=== PATIENT | male | born 1970 | race Two or more races ===

== ENCOUNTER 2024-11-23 10:22 | Inpatient (IN) | payer MEDICAID, OTHER ==
[~2024-11-23] VITALS: Ht 177.8 cm; Wt 106.8 kg
[2024-11-23 10:30] VITALS: PULSE 95; RESP 24; O2SAT 100
--- NOTE | 2024-11-23 11:00 | ED.PDOC ---
History of Present Illness HPI Comments This is a 54-year-old male who comes in with chief complaint of shortness a breath and increased urine output. According to the family, the patient had nine episodes of urination today. The patient denies any hematuria. He has had some chills as well as some confusion and agitation. He has a history of liver cirrhosis but has never undergone a paracentesis. He states that he is having the difficulty breathing along with the chills. He was brought to the emergency department's by the family member. Chief Complaint: Shortness of Breath Time Seen by MD: 10:25 Primary Care Provider: UNKNOWN Reviewed Notes: Nurses Notes, Medications, Allergies (NKDA) Allergies: Coded Allergies: NO KNOWN ALLERGIES (Unverified , 11/23/24) Information Source: Patient Mode of Arrival: Ambulatory Severity: Moderate Timing: Hours Duration: Since onset Prehospital treatment: None Associated signs and symptoms Increased urine output as well as some shortness for breath and chills Past Medical History PAST MEDICAL HISTORY: DM, Liver Surgical History: Denies all surgeries Family History Family History: Family hx of DM, Family hx of HTN Social History Smoker: Non-Smoker Alcohol: Sober Drugs: Denies Drug Use Lives In: Home Constitutional: reports: chills; denies: diaphoresis, fatigue, fever, malaise, sweats, weakness, others EENTM: denies: blurred vision, double vision, ear bleeding, ear discharge, ear drainage, ear pain, ear ringing, eye pain, eye redness, hearing loss, mouth pain, mouth swelling, nasal discharge, nose bleeding, nose congestion, nose pain, photophobia, tearing, throat pain, throat swelling, voice changes, others Respiratory: reports: shortness of breath; denies: cough, hemoptysis, orthopnea, SOB at rest, SOB with excertion, stridor, wheezing, others Cardiovascular: denies: chest pain, dizzy spells, diaphoresis, Dyspnea on exertion, edema, irregular heart beat, left arm pain, lightheadedness, palpitations, PND, syncope, others Gastrointestinal: denies: abdomen distended, abdominal pain, blood streaked bowels, constipated, diarrhea, dysphagia, difficulty swallowing, hematemesis, melena, nausea, poor appetite, poor fluid intake, rectal bleeding, rectal pain, vomiting, others Genitourinary: denies: burning, dysuria, flank pain, frequency, hematuria, incontinence, penile discharge, penile sore, pain, testicle pain, testicle swelling, urgency, others Neurological: reports: others (Agitated and confused); denies: dizziness, fainting, headache, left sided numbness, left sided weakness, numbness, paresthesia, pre-existing deficit, right sided numbness, right sided weakness, seizure, speech problems, tingling, tremors, weakness Musculoskeletal: denies: back pain, gout, joint pain, joint swelling, muscle pain, muscle stiffness, neck pain, others Integumetry: denies: bruises, change in color, change in hair/nails, dryness, laceration, lesions, lumps, rash, wounds, others Allergic/Immunocompromised: denies: Difficulty Healing, Frequent Infections, Hives, Itching, others Hematologic/Lymphatic: denies: anemia, blood clots, easy bleeding, easy bruising, swollen glands, others Endocrine: reports: excessive urination; denies: excessive hunger, excessive sweating, excessive thirst, flushing, intolerance to cold, intolerance to heat, unexplained weight gain, unexplained weight loss, others Psychiatric: denies: anxiety, bipolar disorder, depression, hopeless, panic disorder, schizophrenia, sleepless, suicidal, others Physical Exam General Appearance: Moderate Distress, Obese HEENT: Pale Conjuntivae (L), Pale Conjuntivae (R), Pharynx Normal, TMs Normal Neck: Full Range of Motion, Non-Tender, Normal, Normal Inspection Respiratory: Chest Non-Tender, Decreased Breath Sounds, No Accessory Muscle Use , Respiratory Distress Cardiovascular: No Edema, No JVD, No Murmur, No Gallop, Tachycardia Breast Exam: Deferred Gastrointestinal: Distended, Hepatomegaly, No Pulsatile Mass, Normal Bowel So unds, Soft Genitalia: Deferred Pelvic: Deferred Rectal: Deferred Extremities: No calf tenderness, Normal capillary refill, Pedal edema Musculoskeletal : Apperance: Normal Neurologic: supervisor rides II-XII nml as Tested, Motor Weakness, Normal Mood, No Sensory Deficits, Other (Some confusion) Cerebellar Function: Unable to Test Reflexes: Normal Skin: Dry, Pallor, Warm Lymphatic: No Adenopathy Was a procedure done? Was a procedure done?: No EKG EKG : Pulse Rate (adult): 107 [place]: Normal Cardiac Rhythm: ST Block: None Differential Dx Considerations may include: Pneumonia, cirrhosis of the liver, bronchitis, CHF X-Ray, Labs, Meds, VS Vital Signs Date Time Temp Pulse Resp B/P (MAP) Pulse Ox O2 Delivery O2 Flow Rate FiO2 11/23/24 13:25 93 11/23/24 11:00 107 11/23/24 10:42 99.5 103 27 145/90 (108) 81 11/23/24 10:31 168 11/23/24 10:30 95 24 100 Non-Rebreather 15 N/A Lab Test 11/23/24 11:03 11/23/24 10:34 Range/Units White Blood Count 7.0 4.4-10.8 10^3/uL Red Blood Count 4.40 L 4.5-5.90 10^6/uL Hemoglobin 14.6 13.5-17.5 g/dL Hematocrit 43.0 41.0-53.0 % Mean Corpuscular Volume 97.7 80.0-100.0 fL Mean Corpuscular Hemoglobin 33.2 H 28.0-32.0 pg Mean Corpuscular Hemoglobin Concent 33.9 32.0-36.0 g/dL Red Cell Distribution Width 17.3 H 11.8-14.3 % Platelet Count 98 L 140-450 10^3/uL Mean Platelet Volume 9.1 6.9-10.8 fL Neutrophils (%) (Auto) 37.0-80.0 % Lymphocytes (%) (Auto) 10.0-50.0 % Monocytes (%) (Auto) 0.0-12.0 % Basophils (%) (Auto) 0.0-2.0 % Neutrophils # (Auto) 1.6-8.6 10 ^3/uL Lymphocytes # (Auto) 0.4-5.4 10 ^3/uL Monocytes # (Auto) 0-1.3 10 ^3/uL Differential Total Cells Counted 100.0 100 Neutrophils % (Manual) 75 37.0-80.0 Band Neutrophils % (Manual) 7 Lymphocytes % (Manual) 14 10.0-50.0 Monocytes % (Manual) 3 0-12 Eosinophils % (Manual) 0 0-7 Basophils % (Manual) 0 0.0-2.0 Metamyelocytes % (manual) 0 Myelocytes % (Manual) 0 Promyelocytes % (Manual) 0 Blast Cells % (Manual) 0 Reactive Lymphocytes 1 Platelet Estimate Decreased Prothrombin Time 14.5 H 9.3-11.8 sec Prothrombin Time INR 1.37 H 0.9-1.15 Activated Partial Thromboplast Time 29.6 24.5-34.5 SEC Sodium Level 130 L 136-145 mmol/L Potassium Level 4.5 3.5-5.1 mmol/L Chloride Level 98 98-107 mmol/L Carbon Dioxide Level 24 20-31 mmol/L Anion Gap 8 5-15 Blood Urea Nitrogen 11 9-23 mg/dL Creatinine 0.80 0.700-1.30 mg/dL Glomerular Filtration Rate Calc 106 >90 mL/min BUN/Creatinine Ratio 13.8 10.0-20.0 Serum Glucose 199 H 74-106 mg/dL Calcium Level 8.6 L 8.7-10.4 mg/dL Total Bilirubin 3.1 H 0.2-1.0 mg/dL Aspartate Amino Transferase (AST) 140 H 13-40 U/L Alanine Aminotransferase (ALT) 73 H 7-40 U/L Alkaline Phosphatase 285 H 46-116 U/L Ammonia 66 H 11-32 umol/L B-Type Natriuretic Peptide 161.26 0-100 pg/mL Total Protein 7.1 5.7-8.2 g/dL Albumin 2.5 L 3.2-4.8 g/dL Urine Color Yellow Yellow Urine Clarity Clear Clear Urine pH 5.5 5.0-9.0 Urine Specific [place] 1.040 H 1.001-1.035 Urine Protein Negative Negative Urine Ketones Negative Negative Urine Blood 3+ H Negative /uL Urine Nitrite Negative Negative Urine Bilirubin Negative Negative Urine Urobilinogen Normal Negative mg/dL Urine Leukocyte Esterase Trace Negative /uL Urine RBC 245 0 - 3 /hpf Urine WBC 41 0 - 3 /hpf Urine Squamous Epithelial Cells Few <5 /hpf Urine Bacteria None seen None Seen /hpf Urine Glucose 4+ H Normal mg/dL The chest x-ray shows low volumes with lung congestion. The patient was only around 80% on room air oxygen The patient was being placed on oxygen for the hypoxia An IV Hep-Lock was established. The urine test is positive for UTI The patient's total bilirubin is 3.1 indicating hyperbilirubinemia The liver enzymes are elevated and the ammonia level is elevated at 66. The patient was being admitted with a diagnosis of hepatic encephalopathy as well as intractable abdominal pain We recommend that a GI consult takes place to evaluate the cirrhosis of the li caroline Images Reviewed?: Images reviewed and evaluated by me Time of 1ST Reevaluation: 10:59 Reevaluation 1ST: Unchanged Patient Education/Counseling: Diagnosis, Treatment, Prognosis Family Education/Counseling: Diagnosis, Treatment, Prognosis Departure 1 Departure Time of Disposition: 11:35 Impression: Primary Impression: Intractable abdominal pain Additional Impressions: Hyperbilirubinemia Hepatic encephalopathy Shortness of breath Liver cirrhosis Disposition: ADMITTED INPATIENT Admit to: Tele Condition: Fair Critical Care Note Critical Care Time?: Yes (45 min-critical care time only) Stability Stability form required: Yes Unstable for transfer: Telemetry monitoring (Telemetry monitoring required), ED Physician Assesment (Clinical assesment) Heart Score Heart Score: Heart Score Response (Comments) Value History Moderate Suspicious 1 EKG Normal 0 Age 45-64 1 Risk Factors 1 or 2 risk factors 1 Troponin N/A 0 Total 3 I personally scribed for JUDITH RAJAN MD ([email or web address]) on 11/23/24 at 12:05. Electronically submitted by Jory Paz ([facility]). JUDITH RAJAN MD Nov 23, 2024 11:00
--- NOTE | 2024-11-23 11:10 | DVH ---
CHEST RADIOGRAPH Indication: sob Technique: Single frontal view of the chest was obtained COMPARISON: None FINDINGS: Lines and Tubes: None Lungs: Congestion. Low lung volumes. Pleura: No effusion. No pneumothorax. Cardiomediastinal contours: Unremarkable Bones: Unremarkable IMPRESSION: Congestion. Low lung volumes.
[2024-11-23 12:11] LABS: Hemoglobin 14.6 g/dL (13.5-17.5); Mean Corpuscular Hemoglobin 33.2 pg (28.0-32.0); Mean Corpuscular Hgb Conc. 33.9 g/dL (32.0-36.0); Mean Corpuscular Volume 97.7 fL (80.0-100.0); Platelet Count (auto) 98 10^3/uL (140-450); Red Cell Distribution Width 17.3 % (11.8-14.3)
[2024-11-23 12:13] LABS: Basophils % (manual) 0 (0.0-2.0); Blast Cells 0; Eosinophils % (manual) 0 (0-7); Metamyelocytes % 0; Myelocytes % 0; Promyelocytes % 0
[2024-11-23 12:23] LABS: Urine Bacteria None Seen /hpf (None Seen)
[2024-11-23 12:32] LABS: Anion Gap 8 (5-15); BUN/Creatinine Ratio 13.8 (10.0-20.0); Blood Urea Nitrogen 11 mg/dL (9-23); Carbon Dioxide 24 mmol/L (20-31); Chloride 98 mmol/L (98-107); Potassium 4.5 mmol/L (3.5-5.1); Total Protein 7.1 g/dL (5.7-8.2)
[2024-11-23 12:33] LABS: INR 1.37 (0.9-1.15); Partial Thromboplastin Time 29.6 SEC (24.5-34.5); Prothrombin Time 14.5 sec (9.3-11.8)
[2024-11-23 12:43] LABS: Alanine Aminotransferase 73 U/L (7-40); Albumin 2.5 g/dL (3.2-4.8); Alkaline Phosphatase 285 U/L (46-116); Aspartate Aminotransferase 140 U/L (13-40); Bilirubin, Total 3.1 mg/dL (0.2-1.0); Calcium 8.6 mg/dL (8.7-10.4); Glucose 199 mg/dL (74-106); Sodium 130 mmol/L (136-145)
[2024-11-23 13:09] LABS: Urine Blood 3+ /uL (Negative); Urine Clarity Clear (Clear); Urine Color Yellow (Yellow); Urine Protein, UAD Negative (Negative); Urine Squamous Epithelial Cell FEW /hpf (<5); Urine Urobilinogen Normal (Negative); Urine WBC 41 /hpf (0 - 3); Urine pH 5.5 (5.0-9.0)
[2024-11-23 13:22] LABS: Band Neutrophils % (manual) 7
[2024-11-23 13:23] LABS: Lymphocytes % (manual) 14 (10.0-50.0); Monocytes % (manual) 3 (0-12); Platelet Estimate Decreased; Reactive Lymphocytes 1
[2024-11-23] MEDS: cefTRIAXone 1GM/50ML D5W 50 ML IV ONE (13:41)
[2024-11-23] MEDS: LACTULOSE 20Gm/30ML SOLN PO ONE (15:06)
[2024-11-23] MEDS ORDERED: NITROGLYCERIN 0.4 MG SL TAB SL PRN ×2 (15:45→16:00)
[2024-11-23] MEDS ORDERED: ALBUTEROL SULF 2.5 MG/0.5ML(0.5%) NEB SOLN NEB PRN ×2 (15:45→16:00)
[2024-11-23] MEDS: FUROSEMIDE 20 MG/2 ML VIAL IV ONE (15:45)
[2024-11-23] MEDS ORDERED: FUROSEMIDE 20 MG/2 ML VIAL IV ONE (15:45)
[2024-11-23] MEDS ORDERED: MORPHINE SULFATE INJ 2 MG/ml SYRG IV PRN ×2 (15:45→16:00)
--- NOTE | 2024-11-23 16:01 | DVHHP2 ---
History of Present Illness Reason for Visit: Acute hypoxic respiratory failure History of Present Illness This is a 54-year-old male with history of liver disease and type 2 DM presents to ED with chief complaint of shortness of breaths associated with polydipsia, chills, confusion and agitation. Patient has history of liver cirrhosis related to alcohol abuse, quit five years ago. Upon evaluation of patient in ER bed eight, currently on 15 L non-rebreather mask with SpO2 99% with large abdominal distention. He denies ever having paracentesis. He states recently going to hospital in [place] on November 06, 2024 for shortness of breath and abdominal distention in which ultrasound was performed and not needing paracentesis at that time. Daughter at the bedside states that his abdomen has progressively gotten larger causing more shortness of breath. Due to these symptoms the patient is concerned and would like to be further evaluated and treated. The pa tono will be admitted under hospitalist care to the telemetry unit for monitoring. The patient denies headache, dizziness, palpitation, chest pain, nausea, vomiting, diarrhea, constipation and other associated symptoms. The plan has been discussed with the patient daughter at the bedside and primary RN in which all questions concerns have been addressed. Hepatobiliary: Cirrhosis (Alcohol-induced) Endocrine: Diabetes Past Surgical History: None Family History: DM, Hypertension Smoke: No ALCOHOL: heavy (History of alcohol abuse currently sober x5 years) Drugs: None Lives: with Family Domestic Violence: Neg Review of Systems Respiratory: Shortness of breath Gastrointestinal: Abdominal Pain, Other (Abdominal distention) Allergies: Coded Allergies: NO KNOWN ALLERGIES (Unverified , 11/23/24) Medications Current Medications Medications Dose Ordered Sig/Lupe Route Start Time Stop Time Status Last Admin Dose Admin Lactulose 30 ml DAILY PO 11/24/24 10:00 Albuterol 2.5 mg Q2HPRN PRN NEB 11/23/24 15:45 UNV Furosemide 20 mg DAILY IV 11/24/24 10:00 UNV Enoxaparin Sodium 40 mg DAILY SC 11/24/24 10:00 UNV Nitroglycerin 0.4 mg Q5MINP PRN SL 11/23/24 15:45 UNV Morphine Sulfate 2 mg Q30M PRN IV 11/23/24 15:45 UNV Exam Vital Signs Vital Signs Date Time Temp Pulse Resp B/P (MAP) Pulse Ox O2 Delivery O2 Flow Rate FiO2 11/23/24 14:38 100.2 91 26 94/55 (68) 98 100.2 11/23/24 10:30 Non-Rebreather 15 N/A General Appearance: Alert, Oriented X3, Cooperative, mild distress HEENT: Atraumatic, PERRLA, Mucous membr. moist/pink Respiratory: Other (Diminished bilateral lower lung [place]) Cardiovascular: Regular rate, Normal S1, Normal S2, No murmurs Abdominal: Normal bowel sounds Extremities: No clubbing, No cyanosis, No edema, Normal pulses Skin: No rashes, No breakdown Neuro: Normal speech, Strength at 5/5 X4 ext, Normal tone, Sensation intact Psych/Mental Status: Mental status NL Labs/Xrays Labs Test 11/23/24 11:03 11/23/24 10:34 Range/Units White Blood Count 7.0 4.4-10.8 10^3/uL Red Blood Count 4.40 L 4.5-5.90 10^6/uL Hemoglobin 14.6 13.5-17.5 g/dL Hematocrit 43.0 41.0-53.0 % Mean Corpuscular Volume 97.7 80.0-100.0 fL Mean Corpuscular Hemoglobin 33.2 H 28.0-32.0 pg Mean Corpuscular Hemoglobin Concent 33.9 32.0-36.0 g/dL Red Cell Distribution Width 17.3 H 11.8-14.3 % Platelet Count 98 L 140-450 10^3/uL Mean Platelet Volume 9.1 6.9-10.8 fL Neutrophils (%) (Auto) 37.0-80.0 % Lymphocytes (%) (Auto) 10.0-50.0 % Monocytes (%) (Auto) 0.0-12.0 % Basophils (%) (Auto) 0.0-2.0 % Neutrophils # (Auto) 1.6-8.6 10 ^3/uL Lymphocytes # (Auto) 0.4-5.4 10 ^3/uL Monocytes # (Auto) 0-1.3 10 ^3/uL Differential Total Cells Counted 100.0 100 Neutrophils % (Manual) 75 37.0-80.0 Band Neutrophils % (Manual) 7 Lymphocytes % (Manual) 14 10.0-50.0 Monocytes % (Manual) 3 0-12 Eosinophils % (Manual) 0 0-7 Basophils % (Manual) 0 0.0-2.0 Metamyelocytes % (manual) 0 Myelocytes % (Manual) 0 Promyelocytes % (Manual) 0 Blast Cells % (Manual) 0 Reactive Lymphocytes 1 Platelet Estimate Decreased Prothrombin Time 14.5 H 9.3-11.8 sec Prothrombin Time INR 1.37 H 0.9-1.15 Activated Partial Thromboplast Time 29.6 24.5-34.5 SEC Sodium Level 130 L 136-145 mmol/L Potassium Level 4.5 3.5-5.1 mmol/L Chloride Level 98 98-107 mmol/L Carbon Dioxide Level 24 20-31 mmol/L Anion Gap 8 5-15 Blood Urea Nitrogen 11 9-23 mg/dL Creatinine 0.80 0.700-1.30 mg/dL Glomerular Filtration Rate Calc 106 >90 mL/min BUN/Creatinine Ratio 13.8 10.0-20.0 Serum Glucose 199 H 74-106 mg/dL Calcium Level 8.6 L 8.7-10.4 mg/dL Total Bilirubin 3.1 H 0.2-1.0 mg/dL Aspartate Amino Transferase (AST) 140 H 13-40 U/L Alanine Aminotransferase (ALT) 73 H 7-40 U/L Alkaline Phosphatase 285 H 46-116 U/L Ammonia 66 H 11-32 umol/L B-Type Natriuretic Peptide 161.26 0-100 pg/mL Total Protein 7.1 5.7-8.2 g/dL Albumin 2.5 L 3.2-4.8 g/dL Urine Color Yellow Yellow Urine Clarity Clear Clear Urine pH 5.5 5.0-9.0 Urine Specific [place] 1.040 H 1.001-1.035 Urine Protein Negative Negative Urine Ketones Negative Negative Urine Blood 3+ H Negative /uL Urine Nitrite Negative Negative Urine Bilirubin Negative Negative Urine Urobilinogen Normal Negative mg/dL Urine Leukocyte Esterase Trace Negative /uL Urine RBC 245 0 - 3 /hpf Urine WBC 41 0 - 3 /hpf Urine Squamous Epithelial Cells Few <5 /hpf Urine Bacteria None seen None Seen /hpf Urine Glucose 4+ H Normal mg/dL ORDERING PHYSICIAN: JUDITH RAJAN MD PROCEDURE(s): CXRP - CHEST PORTABLE REASON: sob ORDER NUMBER(s): [id number], ACCESSION NUMBER(s): [id number] CHEST RADIOGRAPH Indication: sob Technique: Single frontal view of the chest was obtained COMPARISON: None FINDINGS: Lines and Tubes: None Lungs: Congestion. Low lung volumes. Pleura: No effusion. No pneumothorax. Cardiomediastinal contours: Unremarkable Bones: Unremarkable IMPRESSION: Congestion. Low lung volumes. ATED BY: BRONSON DAVIS MD DICTATED DATE/TIME: 11/23/241104 SIGNED BY: BRONSON DAVIS MD SIGNED DATE/TIME: 11/23/241104 CC: Assessment/Plan Assessment/Plan Acute hypoxic respiratory failure--patient presents to ER with shortness of breath associated with polydipsia, chills, confusion agitation Recently went to hospital in [place] on 11/06/2024 for same symptoms History of alcohol abuse quit five years ago; never received paracentesis Currently on 15 L non-rebreather mask with SpO2 99% Admit to telemetry unit for continuous monitoring Reviewed CBC which is normal Reviewed urinalysis which is normal INR less than 2.0 Reviewed BMP lab values Reviewed BNP which is 161 Reviewed chest x-ray shows congestion Albuterol q.2h p.r.n. shortness of breath IV Lasix now and daily ABG now pending result Consider place patient on BiPAP if needed Consider to consult pipe cutter if respiratory status progressively declined Hyponatremia/sodium 130 Continue to monitor labs Hypoalbuminemia Albumin level 2.5 Continue to monitor labs Ascites Ordered abdominal ultrasound to check fluid level Consider to consult interventional radiologist for possible paracentesis Cirrhosis due to alcohol abuse Elevated liver enzyme Liver ultrasound pending Consider to consult GI specialist for evaluation and recommendation Hyperammonemia Ammonia level 66 Lactulose now and daily Check ammonia level in a.m. Type 2 DM ? Uncontrolled HGB A1c pending Regular insulin mild SS a.c. and HS Accu-Cheks per protocol Reconcile home medication DVT prophylaxis PUD prophylaxis Labs in a.m. Discussed plan of care with the patient, daughter who is at the bedside and primary RN in which all questions concerns have been addressed Plan discussed with: Patient My Orders Orders - DOUG STROUD EDUCATION RN Procedure Category Date Status Time Lactulose Oral PHA 11/24/24 In Process 10:00 Abdomen Complete US 11/23/24 Logged Sonogram 15:42 Ammonia LAB 11/24/24 Verified 04:00 Albuterol Medneb PHA 11/23/24 Logged (Ventolin Medneb) 15:45 Furosemide Injection PHA 11/24/24 Logged (Lasix Injection) 10:00 Furosemide Injection PHA 11/23/24 Logged (Lasix Injection) 15:45 Admit ADMIT 11/23/24 Transmitted 15:42 2 Gm Sodium Diet DIET 11/23/24 Transmitted Dinner Enoxaparin Sodium PHA 11/24/24 Logged (Lovenox) 10:00 Complete Blood Count LAB 11/24/24 Verified 04:00 Comprehensive LAB 11/24/24 Verified Metabolic Panel 04:00 Condition: Fair [facility] 11/23/24 In Process 15:42 Bedrest With Bathroom [facility] 11/23/24 In Process Privileg 15:42 Nitroglycerin [facility] 11/23/24 Logged Sublingual (Ntrostat 15:45 Morphine Sulfate PHA 11/23/24 Logged Injection 15:45 Stat Ekg For Chest [facility] 11/23/24 In Process Pain 15:42 Notify Md Of Changes [facility] 11/23/24 In Process From Base 15:42 Production Superintendent Hydro For [facility] 11/23/24 In Process 24 Hours 15:42 Emergency Dysrhythmia [facility] 11/23/24 In Process Protocol 15:42 Rhythm Strips Once [facility] 11/23/24 In Process Every Shift 15:42 Oxygen By Nasal RT 11/23/24 Transmitted Cannula 15:42 D-Dimer LAB 11/23/24 Logged 15:42 Communication Order ORDERS 11/23/24 Transmitted 15:42 LIVER US 11/23/24 Logged 15:42 Bilirubin, Direct LAB 11/23/24 Logged 15:46 Date of Service: Nov 23, 2024 Billing Provider: DOUG STROUD Common Visit Codes: [id number] INP/OBS CARE (HIGH) DOUG STROUDP Nov 23, 2024 16:01
[2024-11-23 16:38] VITALS: BP 94/55; PULSE 91; RESP 26; TEMP 100.2; O2SAT 98
--- NOTE | 2024-11-23 16:43 | DVH ---
Procedure: US ABDOMEN COMPLETE SONOGRAM 11/23/2024 04:27 PM Indication: Ascites Comparison: None Technique: Sonogram of the abdominal quadrants was obtained utilizing grayscale technique. FINDINGS: Fluid is seen in all 4 abdominal quadrants with the largest pocket in the right lower quadr ant. IMPRESSION: Moderate ascites with the largest pocket in the right lower quadrant.
[2024-11-23 16:47] LABS: Base Excess -1.2 mmol/L (-2.0-3.0)
[2024-11-23 19:30] VITALS: PULSE 96; RESP 22; O2SAT 100
[2024-11-23 21:24] VITALS: O2SAT 96
[2024-11-23 21:45] VITALS: BP 100/66; PULSE 86; RESP 20; TEMP 97.9; O2SAT 100
[2024-11-23 22:27] VITALS: BP 100/66; PULSE 86; RESP 19; TEMP 97.9; O2SAT 100
[2024-11-24] VITALS (11 sets, daily range): BP systolic 91–105; BP diastolic 52–58; PULSE 70–95; RESP 16–22; TEMP 97.3–98.3; O2SAT 96–100
[2024-11-24 02:38] LABS: COVID19 ANTIGEN SOFIA FIA NEGATIVE (NEGATIVE)
[2024-11-24 05:45] LABS: Basophils # (auto) 0 10 ^3/uL (0-0.2); Eosinophils # (auto) 0 10 ^3/uL (0-0.8); Hematocrit 36.9 % (41.0-53.0); Hemoglobin 12.5 g/dL (13.5-17.5); Lymphocytes # (auto) 1.4 10 ^3/uL (0.4-5.4); Lymphocytes % (auto) 11.4 % (10.0-50.0); Mean Corpuscular Hemoglobin 33.4 pg (28.0-32.0); Mean Corpuscular Hgb Conc. 33.8 g/dL (32.0-36.0); Mean Corpuscular Volume 98.7 fL (80.0-100.0); Monocytes # (auto) 0.8 10 ^3/uL (0-1.3); Monocytes % (auto) 6.5 % (0.0-12.0); Neutrophils % (auto) 82.1 % (37.0-80.0); Nucleated Red Blood Cells % 0.1 %; Platelet Count (auto) 76 10^3/uL (140-450); Red Blood Cells 3.74 10^6/uL (4.5-5.90); Red Cell Distribution Width 17.6 % (11.8-14.3); White Blood Cell 12.2 10^3/uL (4.4-10.8)
[2024-11-24 05:57] LABS: Anion Gap 7 (5-15); BUN/Creatinine Ratio 22.4 (10.0-20.0); Blood Urea Nitrogen 13 mg/dL (9-23); Carbon Dioxide 23 mmol/L (20-31); Chloride 102 mmol/L (98-107); Potassium 4.9 mmol/L (3.5-5.1)
[2024-11-24 05:58] LABS: Total Protein 6.1 g/dL (5.7-8.2)
[2024-11-24 05:59] LABS: Alanine Aminotransferase 57 U/L (7-40); Albumin 2.2 g/dL (3.2-4.8); Alkaline Phosphatase 220 U/L (46-116); Aspartate Aminotransferase 105 U/L (13-40); Bilirubin, Total 2.8 mg/dL (0.2-1.0); Calcium 8.1 mg/dL (8.7-10.4); Glucose 134 mg/dL (74-106); Sodium 132 mmol/L (136-145)
[2024-11-24] MEDS ORDERED: ENOXAPARIN SOD 40 MG/0.4 ML SYRINGE SC SCH (10:00)
[2024-11-24] MEDS ORDERED: FUROSEMIDE 20 MG/2 ML VIAL IV SCH (10:00)
[2024-11-24] MEDS ORDERED: LACTULOSE 20Gm/30ML SOLN PO SCH ×2 (10:00→22:00)
[2024-11-24] MEDS: FUROSEMIDE 20 MG/2 ML VIAL IV SCH (10:29)
[2024-11-24] MEDS: ENOXAPARIN SOD 40 MG/0.4 ML SYRINGE SC SCH (10:31)
--- NOTE | 2024-11-24 10:50 | ECG ---
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
--- NOTE | 2024-11-24 15:19 | DVHPNRES ---
Progress Note Date Seen: Nov 24, 2024 Resident Creating Document: SHEMARRADHALUMA RESIDENT Medical Necessity Reason Pt with a Central, PICC or Fol: No Subjective Review of Systems Patient is a 54-year-old male with a past medical history of type 2 diabetes mellitus, liver cirrhosis came to the ED with a chief complaint of shortness of breath for 1 day prior to admission. Patient reported that he had fever about 4-5 days ago and has been feeling short of breath yesterday which worsened and prompted him to visit the hospital. Patient reports that since the last 2-3 weeks he was noted that his stomach has swollen up gradually and slowly and he often times feels bloated. Patient was diagnosed with liver cirrhosis 5 years ago, alcohol induced. Patient denied nausea, vomiting, abdominal pain in the last week. No history of hematemesis, melena, hematochezia. He recently moved to the [facility] from [place]. Past medical history: Type 2 diabetes mellitus, Liver cirrhosis (alcohol- induced) Past surgical history: None reported Social history: Patient lives with his daughter, recently moved from [place], denies current smoking, alcohol, drug use Home medications: Furosemide 40 mg q.d., propranolol 40 mg q.d., spironolactone 50 mg b.i.d., folic acid, ursodeoxycholic acid Review of systems At the time of examination patient was saturating 98% on 4 L oxygen via nasal cannula. Patient denied chest pain, palpitations, nausea, vomiting, diarrhea, headache. Objective vital signs Vital Sign Date Time Temp Pulse Resp B/P (MAP) Pulse Ox O2 Delivery O2 Flow Rate FiO2 11/24/24 13:00 97.4 70 16 91/57 (68) 98 97.4 11/23/24 22:27 Non-Rebreather 10 N/A Total Intake and Output 11/23/24 11/23/24 11/24/24 15:00 23:00 07:00 Intake Total 50 ml 400 ml Output Total 50 ml 100 ml 350 ml Balance 0 ml -100 ml 50 ml medications Current Medications Medications Dose Ordered Sig/Lupe Route Start Time Stop Time Status Last Admin Dose Admin Lactulose 30 ml DAILY PO 11/24/24 10:00 Furosemide 20 mg DAILY IV 11/24/24 10:00 11/24/24 10:29 20 MG Enoxaparin Sodium 40 mg DAILY SC 11/24/24 10:00 Morphine Sulfate 2 mg Q30M PRN IV 11/23/24 16:00 Albuterol 2.5 mg Q2HPRN PRN NEB 11/23/24 16:00 Nitroglycerin 0.4 mg Q5MINP PRN SL 11/23/24 16:00 Examination Physical Examination Constitutional: Patient was alert and oriented to time, place and person and did not appear to be in any acute respiratory distress. Gen - no pallor, scleral icterus present, no cyanosis, no clubbing, no LAD, 2+ edema up to the mid shins present bilateral lower extremities , no asterixis seen. Skin - Patients skin is warm and dry. HEENT - normocephalic, atraumatic, moist mucous membranes. Neck - full ROM, no LAD, no JVD. Pulmonary - B/L equal air entry with bibasilar scattered inspiratory coarse crackles heard , no wheezing, no stridor. cardiovascular - normal S1,S2 heard. no murmurs heard. peripheral pulses normal radial 2+, pedal 2+. GI - soft distended abdomen with no tenderness to palpation. no hepatospleenomegaly. Bowel sounds normoactive Neurological - Bilateral upper extremity strength 5/5, bilateral lower extremity strength 5/5, no facial droop, normal speech, no tremor, no sensory deficiets. laboratory and microbiology Laboratory Tests 11/24/24 04:27 Test 11/24/24 04:27 Range/Units Serum Glucose 134 H 74-106 mg/dL Problem List/Assessment/Plan Problem List/Assessment/Plan Assessment Acute hypoxic respiratory failure likely due to pulmonary edema Pulmonary edema likely due to decompensated liver cirrhosis Decompensated liver cirrhosis alcohol-induced MELD Na-18 ? SBP with SIRS positive ? Heart failure systolic versus diastolic R/o PE UTI likely acute cystitis Chest x-ray shows interstitial pulmonary edema Abdominal ultrasound showed moderate ascites with the largest pocket right Bilateral lower extremity venous Doppler showed no sonographic evidence for DVT in the lower extremities Plan - on 2 L oxygen via nasal cannula - albuterol 2.5 mg and ipratropium 0.5 mg Q 8 p.r.n. - furosemide 40 mg IV daily and spironolactone 50 mg p.o. b.i.d. - propranolol 20 mg q.d. - lactulose 15 mL p.o. b.i.d. - ceftriaxone 2 g IV daily - intervention Radiology consulted for ascites, not enough fluid seen via ultrasound by Dr. Hernandez, no paracentesis was done. - D-dimer elevated in the setting of decompensated liver cirrhosis, wells score 4.5, nuclear medicine V/Q scan may be considered. - for suspected heart failure, echo is pending Goals of care discussed with the patient and the daughter for over 25 minutes. Full code Plan discussed with Dr. Cuellar. Plan discussed with: Patient, Daughter Date of Service: Nov 24, 2024 Billing Provider: KORY CUELLAR MD Common Visit Codes: [id number] INP/OBS CARE(HIGH) KAMILLE STATON RESIDENT Nov 24, 2024 15:19 KORY CUELLAR MD Nov 27, 2024 15:17
[2024-11-24] MEDS ORDERED: ALBUTEROL SULF 2.5 MG/0.5ML(0.5%) NEB SOLN NEB PRN (16:00)
[2024-11-24] MEDS ORDERED: IPRATROPIUM BROM 0.5 MG/2.5ML INH SOL NEB PRN (16:00)
[2024-11-24] MEDS: FUROSEMIDE 20 MG/2 ML VIAL IV ONE (17:03)
[2024-11-24] MEDS: ENOXAPARIN SOD 40 MG/0.4 ML SYRINGE SC ONE (17:03)
--- NOTE | 2024-11-24 17:06 | DVH ---
BILATERAL LOWER EXTREMITY VENOUS DOPPLER CLINICAL HISTORY: rule out dvt Technique: Duplex Doppler evaluation of the deep venous systems of both lower extremities from the co mmon femoral veins to the popliteal veins including color Doppler and spectral/pulsed waveform analys is was performed. COMPARISON: None FINDINGS: The right and left common femoral, superficial femoral, popliteal, posterior tibial and peroneal vei ns appear patent with normal augmentation, phasicity, compressibility and color-flow. IMPRESSION: 1. There is no sonographic evidence for DVT in the lower extremities. HS:Y
[2024-11-24] MEDS: cefTRIAXone 2GM/50ML D5W 50 ML IV ONE (17:30)
[2024-11-24] MEDS: SPIRONOLACTONE 25 MG TAB PO SCH (18:45)
[2024-11-24] MEDS: LACTULOSE 20Gm/30ML SOLN PO SCH (22:00)
[2024-11-24 23:31] LABS: Rapid Influenza A Negative (Negative); Rapid Influenza B Negative (Negative)
[2024-11-25] VITALS (9 sets, daily range): BP systolic 90–118; BP diastolic 7–74; PULSE 76–93; RESP 16–19; TEMP 97.8–99.4; O2SAT 94–96
[2024-11-25 07:24] LABS: Anion Gap 3 (5-15); BUN/Creatinine Ratio 31.3 (10.0-20.0); Blood Urea Nitrogen 15 mg/dL (9-23); Carbon Dioxide 25 mmol/L (20-31); Chloride 102 mmol/L (98-107); Total Protein 5.9 g/dL (5.7-8.2)
[2024-11-25 07:26] LABS: Alanine Aminotransferase 50 U/L (7-40); Albumin 2.1 g/dL (3.2-4.8); Alkaline Phosphatase 197 U/L (46-116); Aspartate Aminotransferase 96 U/L (13-40); Calcium 8.1 mg/dL (8.7-10.4); Glucose 135 mg/dL (74-106); Sodium 130 mmol/L (136-145)
[2024-11-25 07:33] LABS: Basophils # (auto) 0 10 ^3/uL (0-0.2); Eosinophils # (auto) 0.3 10 ^3/uL (0-0.8); Eosinophils % (auto) 4.2 % (0.0-7.0); Hematocrit 37.2 % (41.0-53.0); Hemoglobin 12.4 g/dL (13.5-17.5); Lymphocytes # (auto) 1.2 10 ^3/uL (0.4-5.4); Lymphocytes % (auto) 18.3 % (10.0-50.0); Mean Corpuscular Hemoglobin 32.9 pg (28.0-32.0); Mean Corpuscular Hgb Conc. 33.3 g/dL (32.0-36.0); Mean Corpuscular Volume 98.8 fL (80.0-100.0); Monocytes # (auto) 0.8 10 ^3/uL (0-1.3); Monocytes % (auto) 11.7 % (0.0-12.0); Neutrophils # (auto) 4.4 10 ^3/uL (1.6-8.6); Neutrophils % (auto) 65.8 % (37.0-80.0); Nucleated Red Blood Cells % 0.1 %; Platelet Count (auto) 83 10^3/uL (140-450); Red Blood Cells 3.76 10^6/uL (4.5-5.90); Red Cell Distribution Width 18.3 % (11.8-14.3); White Blood Cell 6.7 10^3/uL (4.4-10.8)
[2024-11-25] MEDS ORDERED: ENOXAPARIN SOD 40 MG/0.4 ML SYRINGE SC SCH (10:00)
[2024-11-25] MEDS: FUROSEMIDE 40 MG/4 ML VIAL IV SCH (11:45)
[2024-11-25] MEDS: PANTOPRAZOLE 40 MG/10 ML VIAL INJ IV SCH (11:45)
[2024-11-25] MEDS: PROPRANOLOL HCL 20 MG TAB PO SCH (11:46)
[2024-11-25] MEDS: LACTULOSE 20Gm/30ML SOLN PO SCH (12:00)
[2024-11-25] MEDS: cefTRIAXone 2GM/50ML D5W 50 ML IV SCH (12:33)
--- NOTE | 2024-11-25 20:46 | DVHPNRES ---
Progress Note Date Seen: Nov 25, 2024 Resident Creating Document: RADHA STATONLUMA RESIDENT Medical Necessity Reason Pt with a Central, PICC or Fol: No Subjective Review of Systems Patient seen and examined at bedside Reports that his breathing is better and is comfortable on 2 L oxygen via nasal cannula Reports mild abdominal discomfort with distention Denied chest pain, palpitations, vomiting, diarrhea, headache Objective vital signs Vital Sign Date Time Temp Pulse Resp B/P (MAP) Pulse Ox O2 Delivery O2 Flow Rate FiO2 11/25/24 18:32 95 Nasal Cannula 2.0 11/25/24 18:32 28 11/25/24 17:00 98.3 77 18 112/71 (85) 98.3 Total Intake and Output 11/24/24 11/24/24 11/25/24 15:00 23:00 07:00 Intake Total 850 ml 400 ml Output Total 500 ml Balance 350 ml 400 ml medications Current Medications Medications Dose Ordered Sig/Lupe Route Start Time Stop Time Status Last Admin Dose Admin Furosemide 40 mg DAILY IV 11/25/24 10:00 11/25/24 11:45 40 MG Spironolactone 50 mg BIDD PO 11/24/24 18:00 11/25/24 18:10 50 MG Propranolol HCl 20 mg DAILY PO 11/25/24 10:00 11/25/24 11:46 20 MG Ceftriaxone Sodium/Dextrose 50 ml @ 50 mls/hr DAILY IV 11/25/24 10:00 11/25/24 12:33 50 MLS/HR Albuterol 2.5 mg Q8HPRN PRN NEB 11/24/24 16:00 Ipratropium [place] 0.5 mg Q8HPRN PRN NEB 11/24/24 16:00 Pantoprazole Sodium 40 mg DAILY IV 11/25/24 10:00 11/25/24 11:45 40 MG Lactulose 30 ml BID PO 11/25/24 12:00 Examination Constitutional: Patient was alert and oriented to time, place and person and did not appear to be in any acute respiratory distress. Gen - no pallor, scleral icterus present, no cyanosis, no clubbing, no LAD, 2+ edema up to the mid shins present bilateral lower extremities , no asterixis seen. Skin - Patients skin is warm and dry. HEENT - normocephalic, atraumatic, moist mucous membranes. Neck - full ROM, no LAD, no JVD. Pulmonary - B/L equal air entry with bibasilar scattered inspiratory coarse crackles heard which have improved since yesterday , no wheezing, no stridor. cardiovascular - normal S1,S2 heard. no murmurs heard. peripheral pulses normal radial 2+, pedal 2+. GI - soft distended abdomen with no tenderness to palpation. no hepatospleenomegaly. Bowel sounds normoactive Neurological - Bilateral upper extremity strength 5/5, bilateral lower extremity strength 5/5, no facial droop, normal speech, no tremor, no sensory deficiets. laboratory and microbiology Laboratory Tests 11/25/24 05:45 Test 11/25/24 05:45 Range/Units Serum Glucose 135 H 74-106 mg/dL Problem List/Assessment/Plan Problem List/Assessment/Plan Assessment Acute hypoxic respiratory failure likely due to pulmonary edema Pulmonary edema likely due to decompensated liver cirrhosis Decompensated liver cirrhosis alcohol-induced MELD Na-18 ? SBP with SIRS positive Sepsis ? Heart failure systolic versus diastolic R/o PE UTI likely acute cystitis Chest x-ray shows interstitial pulmonary edema Abdominal ultrasound showed moderate ascites with the largest pocket right Bilateral lower extremity venous Doppler showed no sonographic evidence for DVT in the lower extremities Plan - on 2 L oxygen via nasal cannula - albuterol 2.5 mg and ipratropium 0.5 mg Q 8 p.r.n. - furosemide 40 mg IV daily and spironolactone 50 mg p.o. b.i.d. - propranolol 20 mg q.d. - lactulose 30 mL p.o. b.i.d. - ceftriaxone 2 g IV daily - intervention Radiology consulted for ascites, not enough fluid seen via ultrasound by Dr. Hernandez, no paracentesis was done. - D-dimer elevated in the setting of decompensated liver cirrhosis, wells score 4.5, nuclear medicine V/Q scan may be considered. - for suspected heart failure, echo is pending Goals of care discussed with the patient and the daughter for over 25 minutes. Full code Plan discussed with Dr. Cuellar. Plan discussed with: Patient, Daughter My Orders My Orders Orders - KAMILLE STATON RESIDENT Procedure Category Date Status Time Lactulose Oral PHA 11/25/24 In Process 12:00 Date of Service: Nov 25, 2024 Billing Provider: KORY CUELLAR MD Common Visit Codes: [id number] INP/OBS CARE(HIGH) KAMILLE STATON RESIDENT Nov 25, 2024 20:46 KORY CUELLAR MD Nov 27, 2024 15:17
[2024-11-26] VITALS (8 sets, daily range): BP systolic 95–111; BP diastolic 57–77; PULSE 73–91; RESP 16–18; TEMP 97.9–98.6; O2SAT 94–99
[2024-11-26 06:18] LABS: Basophils # (auto) 0 10 ^3/uL (0-0.2); Basophils % (auto) 0.2 % (0.0-2.0); Eosinophils # (auto) 0 10 ^3/uL (0-0.8); Eosinophils % (auto) 0.1 % (0.0-7.0); Hematocrit 34.4 % (41.0-53.0); Hemoglobin 11.9 g/dL (13.5-17.5); Lymphocytes # (auto) 1.1 10 ^3/uL (0.4-5.4); Lymphocytes % (auto) 19.3 % (10.0-50.0); Mean Corpuscular Hemoglobin 33.6 pg (28.0-32.0); Mean Corpuscular Hgb Conc. 34.5 g/dL (32.0-36.0); Mean Corpuscular Volume 97.5 fL (80.0-100.0); Monocytes # (auto) 0.5 10 ^3/uL (0-1.3); Monocytes % (auto) 8.2 % (0.0-12.0); Neutrophils # (auto) 4.3 10 ^3/uL (1.6-8.6); Neutrophils % (auto) 72.2 % (37.0-80.0); Nucleated Red Blood Cells % 0.2 %; Platelet Count (auto) 78 10^3/uL (140-450); Red Blood Cells 3.53 10^6/uL (4.5-5.90); Red Cell Distribution Width 17.5 % (11.8-14.3); White Blood Cell 5.9 10^3/uL (4.4-10.8)
[2024-11-26 06:35] LABS: Anion Gap 4 (5-15); BUN/Creatinine Ratio 23.7 (10.0-20.0); Blood Urea Nitrogen 14 mg/dL (9-23); Carbon Dioxide 26 mmol/L (20-31); Potassium 3.9 mmol/L (3.5-5.1)
[2024-11-26 06:36] LABS: Alanine Aminotransferase 51 U/L (7-40); Albumin 2.1 g/dL (3.2-4.8); Alkaline Phosphatase 201 U/L (46-116); Aspartate Aminotransferase 106 U/L (13-40); Bilirubin, Total 2.1 mg/dL (0.2-1.0); Calcium 8.1 mg/dL (8.7-10.4); Chloride 97 mmol/L (98-107); Glucose 206 mg/dL (74-106); Sodium 127 mmol/L (136-145)
[2024-11-26] MEDS ORDERED: DEXTROSE (50%) 50ML SYRG IV PRN (08:15)
[2024-11-26] MEDS ORDERED: ALBUMIN 25% 100 ML IV SCH (11:15)
[2024-11-26] MEDS: ACCU-CHEK COMFORT CURVE STRIP VI SCH (11:28)
[2024-11-26] MEDS: InsuLIN REG 1unit/0.01ml Soln (100units/ml) SC SCH (11:45)
[2024-11-26] MEDS: ALBUMIN 25% 100 ML IV SCH (11:57)
--- NOTE | 2024-11-26 12:40 | DVHSR ---
APPROVED REPORT EXAM: Two-dimensional and M-mode echocardiogram with Doppler and color Doppler. Blood Pressure: 90/57 mmHg INDICATION SOB RISK FACTORS Height: 70, Weight: 239 DIMENSIONS LVDd4.6 (3.8-5.7cm)LA (2D)4.9 (1.9-4.0cm)Aortic Root3.5 (2.0-3.7cm) LVDs2.8 (2.5-4.0cm)LA (MM) (1.9-4.0cm)Aortic Cusp Exc2.0 (1.5-2.0cm) EF (%) 71.0 (55-70%)Rt. Atrium (1.9-4.0cm)Asc. Aorta3.0 cm IVSd1.1 (0.7-1.1cm)RV (D) (1.8-2.4cm) PWd1.2 (0.7-1.1cm) Mitral Valve MitralMitral Stenosis E wave0.79m/sMV Mean GR.mmHg A wave0.73m/sMV Peak GR.mmHg E/A ratio1.12D MVAcm2 DECEL [id number] 1/2 [id number] IVRTmsDop MVA4.24cm2 Aortic Valve Aortic ValveAortic Stenosis V11.39m/Whitney Mean GR.8mmHg V21.85m/Whitney Peak GR.14mmHg LVOT Diameter2.1 (1.8-2.4cm)Doppler AVA2.60cm2 Pulmonic Valve V21.37m/s Tricuspid Valve TR Velocity2.24m/s [id number] Conclusion lvef 70% by visual estimate grade 1 diastolic dysfunction normal rv function, no severe valve abnormalities noted
--- NOTE | 2024-11-26 20:31 | DVHPNRES ---
Progress Note Date Seen: Nov 26, 2024 Resident Creating Document: JHTamicaJKAMILLE Justice RESIDENT Medical Necessity Reason Pt with a Central, PICC or Fol: No Subjective Review of Systems Patient seen and examined at bedside Reports that his breathing is better and is comfortable on 2 L oxygen via nasal cannula does not report any abdominal discomfort Denied chest pain, palpitations, vomiting, diarrhea, headache Objective vital signs Vital Sign Date Time Temp Pulse Resp B/P (MAP) Pulse Ox O2 Delivery O2 Flow Rate FiO2 11/26/24 17:00 98.1 75 18 105/57 (73) 98 98.1 11/26/24 08:00 Oxymizer 2 N/A Total Intake and Output 11/25/24 11/25/24 11/26/24 15:00 23:00 07:00 Intake Total 450 ml Balance 450 ml medications Current Medications Medications Dose Ordered Sig/Lupe Route Start Time Stop Time Status Last Admin Dose Admin Furosemide 40 mg DAILY IV 11/25/24 10:00 11/26/24 10:13 40 MG Spironolactone 50 mg BIDD PO 11/24/24 18:00 11/26/24 17:12 50 MG Propranolol HCl 20 mg DAILY PO 11/25/24 10:00 11/26/24 10:12 20 MG Ceftriaxone Sodium/Dextrose 50 ml @ 50 mls/hr DAILY IV 11/25/24 10:00 11/26/24 10:11 50 MLS/HR Pantoprazole Sodium 40 mg DAILY IV 11/25/24 10:00 11/26/24 10:10 40 MG Lactulose 30 ml BID PO 11/25/24 12:00 11/26/24 10:12 30 ML Insulin Glargine 15 units HS SC 11/26/24 22:00 Diagnostic Test (Pha) 1 strip Q6HR 11/26/24 12:00 11/26/24 17:05 1 STRIP Insulin Human Regular Q6HR SC 11/26/24 12:00 11/26/24 17:14 6 UNITS Dextrose 50 ml UD PRN IV 11/26/24 08:15 Albumin Human 100 ml @ 100 mls/hr Q8H IV 11/26/24 11:15 11/27/24 04:14 UNV Albumin Human 100 ml @ 100 mls/hr Q8H IV 11/26/24 11:15 11/27/24 04:14 11/26/24 19:38 100 MLS/HR Examination Constitutional: Patient was alert and oriented to time, place and person and did not appear to be in any acute respiratory distress. Gen - no pallor, scleral icterus present, no cyanosis, no clubbing, no LAD, 2+ edema up to the mid shins present bilateral lower extremities , no asterixis seen. Skin - Patients skin is warm and dry. HEENT - normocephalic, atraumatic, moist mucous membranes. Neck - full ROM, no LAD, no JVD. Pulmonary - B/L equal air entry with bibasilar scattered inspiratory coarse crackles heard , no wheezing, no stridor. cardiovascular - normal S1,S2 heard. no murmurs heard. peripheral pulses normal radial 2+, pedal 2+. GI - soft distended abdomen with no tenderness to palpation. no hepatospleenomegaly. Bowel sounds normoactive Neurological - Bilateral upper extremity strength 5/5, bilateral lower extremity strength 5/5, no facial droop, normal speech, no tremor, no sensory deficiets. laboratory and microbiology Laboratory Tests 11/26/24 05:17 Test 11/26/24 05:17 Range/Units Serum Glucose 206 H 74-106 mg/dL Problem List/Assessment/Plan Problem List/Assessment/Plan Assessment Acute hypoxic respiratory failure likely due to pulmonary edema Pulmonary edema likely due to decompensated liver cirrhosis Decompensated liver cirrhosis alcohol-induced MELD Na-18 ? SBP with SIRS positive Sepsis ? Heart failure with preserved ejection fraction R/o PE UTI likely acute cystitis Chest x-ray shows interstitial pulmonary edema Abdominal ultrasound showed moderate ascites with the largest pocket right Bilateral lower extremity venous Doppler showed no sonographic evidence for DVT in the lower extremities Plan - on 2 L oxygen via nasal cannula - albuterol 2.5 mg and ipratropium 0.5 mg Q 8 p.r.n. - furosemide 40 mg IV daily and spironolactone 50 mg p.o. b.i.d. - propranolol 20 mg q.d. - lactulose 30 mL p.o. b.i.d. - ceftriaxone 2 g IV daily - intervention Radiology consulted for ascites, not enough fluid seen via ultrasound by Dr. Hernandez, no paracentesis was done. - D-dimer elevated in the setting of decompensated liver cirrhosis, wells score 4.5, nuclear medicine V/Q scan may be considered. - echo shows LVEF 70% with grade 1 diastolic dysfunction. - albumin 25 g x3 added to aid diuresis Goals of care discussed with the patient and the daughter for over 25 minutes. Full code Plan discussed with Dr. Hu. Plan discussed with: Patient, Daughter My Orders My Orders Orders - KAMILLE STATON Procedure Category Date Status Time Insulin Lantus PHA 11/26/24 In Process (Glargine) (Lantus) 22:00 Glucose Blood PHA 11/26/24 In Process (Accu-Chek Comfort 12:00 Insulin R (Human) PHA 11/26/24 In Process (Insulin R) 12:00 Dextrose 50% Syringe PHA 11/26/24 In Process 08:15 Albumin 25% (Albutein) PHA 11/26/24 In Process 11:15 Chest Xray 1 View XY 11/26/24 Logged 17:29 Date of Service: Nov 26, 2024 Billing Provider: KORY HU MD Common Visit Codes: [id number] INP/OBS CARE(HIGH) KAMILLE STATON RESIDENT Nov 26, 2024 20:31 KORY HU MD Nov 27, 2024 15:17
[2024-11-26] MEDS: INSULIN LANTUS (GLARGINE) 1 /0.01ml (100units/ml) SC SCH (21:58)
[2024-11-27] VITALS (9 sets, daily range): BP systolic 96–114; BP diastolic 55–69; PULSE 74–87; RESP 16–19; TEMP 97.6–98.1; O2SAT 92–99
[2024-11-27 08:08] LABS: Basophils # (auto) 0 10 ^3/uL (0-0.2); Basophils % (auto) 0.2 % (0.0-2.0); Eosinophils # (auto) 0 10 ^3/uL (0-0.8); Eosinophils % (auto) 0.1 % (0.0-7.0); Hematocrit 31.6 % (41.0-53.0); Hemoglobin 10.8 g/dL (13.5-17.5); Lymphocytes % (auto) 23.5 % (10.0-50.0); Mean Corpuscular Hemoglobin 33.1 pg (28.0-32.0); Mean Corpuscular Volume 97.4 fL (80.0-100.0); Monocytes # (auto) 0.4 10 ^3/uL (0-1.3); Neutrophils % (auto) 67.2 % (37.0-80.0); Nucleated Red Blood Cells % 0.1 %; Platelet Count (auto) 64 10^3/uL (140-450); Red Blood Cells 3.25 10^6/uL (4.5-5.90); Red Cell Distribution Width 17.6 % (11.8-14.3); White Blood Cell 4.5 10^3/uL (4.4-10.8)
[2024-11-27 08:31] LABS: Anion Gap 4 (5-15); BUN/Creatinine Ratio 18.9 (10.0-20.0); Blood Urea Nitrogen 10 mg/dL (9-23); Carbon Dioxide 27 mmol/L (20-31); Total Protein 5.8 g/dL (5.7-8.2)
[2024-11-27 08:33] LABS: Alanine Aminotransferase 46 U/L (7-40); Albumin 2.5 g/dL (3.2-4.8); Alkaline Phosphatase 164 U/L (46-116); Aspartate Aminotransferase 107 U/L (13-40); Bilirubin, Total 2.3 mg/dL (0.2-1.0); Calcium 8.3 mg/dL (8.7-10.4); Chloride 98 mmol/L (98-107); Glucose 152 mg/dL (74-106); Potassium 3.3 mmol/L (3.5-5.1); Sodium 129 mmol/L (136-145)
--- NOTE | 2024-11-27 08:58 | DVH ---
CHEST RADIOGRAPH Indication: SOB Technique: Single frontal view of the chest was obtained Comparison: XY CHEST PORTABLE on DOS: 11/23/24, XY CHEST PORTABLE on DOS: 11/23/24 FINDINGS: Lines and Tubes: None Lungs: Congestion. Low lung volumes. Pleura: No effusion. No pneumothorax. Cardiomediastinal contours: Unremarkable Bones: Unremarkable IMPRESSION: Congestion. Low lung volumes.
[2024-11-27] MEDS: FUROSEMIDE 40 MG/4 ML VIAL IV ONE (14:00)
[2024-11-27] MEDS: POTASSIUM EFFERVESENT TAB 25 MEQ PO ONE (17:06)
[2024-11-27] MEDS ORDERED: PROP1TAB53 PO (18:31)
[2024-11-27] MEDS ORDERED: LACT10SO3 PO (18:31)
[2024-11-27] MEDS ORDERED: SPIR50TA5 PO (18:31)
[2024-11-27] MEDS ORDERED: INSU100I70 SC (18:31)
[2024-11-27] MEDS ORDERED: EMPA1TAB PO (18:31)
[2024-11-27] MEDS ORDERED: FURO1TAB31 PO (18:31)
--- NOTE | 2024-11-27 20:43 | DVHDSRES ---
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 Uncontrolled Wounds: none Labs/Diagnostic Data: Laboratory Results Test 11/27/24 17:07 11/27/24 06:46 11/26/24 10:06 11/25/24 05:45 POC Glucose 245 mg/dl (70-106) White Blood Count 4.5 10^3/uL (4.4-10.8) Red Blood Count 3.25 10^6/uL (4.5-5.90) Hemoglobin 10.8 g/dL (13.5-17.5) Hematocrit 31.6 % (41.0-53.0) Mean Corpuscular Volume 97.4 fL (80.0-100.0) Mean Corpuscular Hemoglobin 33.1 pg (28.0-32.0) Mean Corpuscular Hemoglobin Concent 34.0 g/dL (32.0-36.0) Red Cell Distribution Width 17.6 % (11.8-14.3) Platelet Count 64 10^3/uL (140-450) Mean Platelet Volume 9.6 fL (6.9-10.8) Neutrophils (%) (Auto) 67.2 % (37.0-80.0) Lymphocytes (%) (Auto) 23.5 % (10.0-50.0) Monocytes (%) (Auto) 9.0 % (0.0-12.0) Eosinophils (%) (Auto) 0.1 % (0.0-7.0) Basophils (%) (Auto) 0.2 % (0.0-2.0) Neutrophils # (Auto) 3.0 10 ^3/uL (1.6-8.6) Lymphocytes # (Auto) 1.0 10 ^3/uL (0.4-5.4) Monocytes # (Auto) 0.4 10 ^3/uL (0-1.3) Eosinophils # (Auto) 0 10 ^3/uL (0-0.8) Basophils # (Auto) 0 10 ^3/uL (0-0.2) Nucleated Red Blood Cells 0.1 % Sodium Level 129 mmol/L (136-145) Potassium Level 3.3 mmol/L (3.5-5.1) Chloride Level 98 mmol/L (98-107) Carbon Dioxide Level 27 mmol/L (20-31) Anion Gap 4 (5-15) Blood Urea Nitrogen 10 mg/dL (9-23) Creatinine 0.53 mg/dL (0.700-1.30) Glomerular Filtration Rate Calc 120 mL/min (>90) BUN/Creatinine Ratio 18.9 (10.0-20.0) Serum Glucose 152 mg/dL (74-106) Calcium Level 8.3 mg/dL (8.7-10.4) Total Bilirubin 2.3 mg/dL (0.2-1.0) Aspartate Amino Transferase (AST) 107 U/L (13-40) Alanine Aminotransferase (ALT) 46 U/L (7-40) Alkaline Phosphatase 164 U/L (46-116) Total Protein 5.8 g/dL (5.7-8.2) Albumin 2.5 g/dL (3.2-4.8) Ammonia 54 umol/L (11-32) Hemoglobin A1c 9.5 % A1C (<5.7) Vitamin B12 Level 2840 pg/mL (211-911) Test 11/24/24 21:45 11/24/24 01:10 11/23/24 16:40 11/23/24 16:03 Influenza Type A Antigen Negative (Negative) Influenza Type B Antigen Negative (Negative) SARS-CoV-2 Antigen (Rapid) Negative (NEGATIVE) Blood Gas Specimen Type Arterial Blood Gas Sample Site Right radial Blood Gas Patient Temperature 37.0 Arterial Blood Date Drawn [id number] Arterial Blood pH 7.451 (7.350-7.450) Arterial Blood Partial Pressure CO2 32.1 mmHg (35.0-48.0) Arterial Blood Partial Pressure O2 128.5 mmHg (83.0-108.0) Arterial Blood HCO3 21.9 mmol/L (21.0-28.0) Arterial Blood Oxygen Saturation 98.8 % (94.0-98.0) Arterial Blood Base Excess -1.2 mmol/L (-2.0-3.0) Arterial Blood Oxyhemoglobin 96.9 % (94.0-98.0) Arterial Blood Carboxyhemoglobin 1.3 % (0.5-1.5) Arterial Blood Methemoglobin 0.6 % (0.0-1.5) Jagdeep Test Yes Blood Gas Total Hemoglobin 14.30 g/dL (13.5-17.5) Blood Gas Liter Flow 15.00 Blood Gas Modality Mask - nrb FiO2 % 90.0 D-Dimer, Quantitative 22.11 mg/L FEU (0.0-0.49) Direct Bilirubin 1.9 mg/dL (<0.3) Test 11/23/24 11:03 11/23/24 10:34 Differential Total Cells Counted 100.0 (100) Neutrophils % (Manual) 75 (37.0-80.0) Band Neutrophils % (Manual) 7 Lymphocytes % (Manual) 14 (10.0-50.0) Monocytes % (Manual) 3 (0-12) Eosinophils % (Manual) 0 (0-7) Basophils % (Manual) 0 (0.0-2.0) Metamyelocytes % (manual) 0 Myelocytes % (Manual) 0 Promyelocytes % (Manual) 0 Blast Cells % (Manual) 0 Reactive Lymphocytes 1 Platelet Estimate Decreased Prothrombin Time 14.5 sec (9.3-11.8) Prothrombin Time INR 1.37 (0.9-1.15) Activated Partial Thromboplast Time 29.6 SEC (24.5-34.5) B-Type Natriuretic Peptide 161.26 pg/mL (0-100) Urine Color Yellow (Yellow) Urine Clarity Clear (Clear) Urine pH 5.5 (5.0-9.0) Urine Specific [place] 1.040 (1.001-1.035) Urine Protein Negative (Negative) Urine Ketones Negative (Negative) Urine Blood 3+ /uL (Negative) Urine Nitrite Negative (Negative) Urine Bilirubin Negative (Negative) Urine Urobilinogen Normal mg/dL (Negative) Urine Leukocyte Esterase Trace /uL (Negative) Urine RBC 245 /hpf (0 - 3) Urine WBC 41 /hpf (0 - 3) Urine Squamous Epithelial Cells Few /hpf (<5) Urine Bacteria None seen /hpf (None Seen) Urine Glucose 4+ mg/dL (Normal) Other Laboratory Tests 11/27/24 06:46 Brief Hx & Hospital Course: HPI: Patient is a 54-year-old male with a past medical history of type 2 diabetes mellitus, liver cirrhosis came to the ED with a chief complaint of shortness of breath for 1 day prior to admission. Patient reported that he had fever about 4-5 days ago and has been feeling short of breath yesterday which worsened and prompted him to visit the hospital. Patient reports that since the last 2-3 weeks he was noted that his stomach has swollen up gradually and slowly and he often times feels bloated. Patient was diagnosed with liver cirrhosis 5 years ago, alcohol induced. Patient denied nausea, vomiting, abdominal pain in the last week. No history of hematemesis, melena, hematochezia. He recently moved to the [facility] from [place]. Past medical history: Type 2 diabetes mellitus, Liver cirrhosis (alcohol- induced) Past surgical history: None reported Social history: Patient lives with his daughter, recently moved from [place], denies current smoking, alcohol, drug use Home medications: Furosemide 40 mg q.d., propranolol 40 mg q.d., spironolactone 50 mg b.i.d., folic acid, ursodeoxycholic acid Hospital course Patient was admitted to the hospital with acute hypoxic respiratory failure and was initially put on 5-6 L oxygen via nasal cannula. At presentation patient was tachycardic, D-dimer was elevated with but the wells score for PE was calculated less than 4 bilateral lower extremity venous duplex showed no DVT. Chest x-ray showed interstitial pulmonary edema and increased pulmonary vascular congestion the patient was started diuresis with furosemide intravenous and spironolactone oral. Abdominal ultrasound was done which showed moderate ascites following which interventional Radiology were consulted for drainage. As per Interventional Radiology not enough fluid was present so the drainage was deferred. At the time of admission patient had altered level of consciousness elevated ammonia level and was given lactulose. To aid the diuresis patient was given albumin. Over the course of hospital stay patient was mental status and breathing improved and eventually was weaned off the oxygen. Physical therapy evaluation was done and the patient was able to walk without assistance and without oxygen. Patient was discharged in stable condition to home and advised to follow up in the discharge clinic. Discharge plan Discharged to home Follow up in the discharge clinic on Sunday with Dr. Hahn/Dr. Harrington Diet: Low-sodium and consistent carbohydrate diet with fluid restrictions 1.2 L per day Medications Furosemide 40 mg q.d., spironolactone 50 mg b.i.d., lactulose 30 ml b.i.d., insulin Lantus 30 units q.h.s., propranolol 20 mg q.d., Jardiance 10 mg q.d. Consults/Reason for consult Interventional radiology consult for Ascitic fluid drainage but not enough fluid present for drainage Operations or Procedures Echo lvef 70% by visual estimate grade 1 diastolic dysfunction normal rv function, no severe valve abnormalities noted Condition at Discharge: Good Final Diagnosis/Problems List Acute hypoxic respiratory failure likely due to pulmonary edema Pulmonary edema likely due to decompensated liver cirrhosis Decompensated liver cirrhosis alcohol-induced MELD Na-18 ? SBP with SIRS positive Sepsis Heart failure with preserved ejection fraction R/o PE UTI likely acute cystitis Discharge Disposition: Home Discharge Instruct/Medications Diet: Consistent carbohydrate, Cardiac 2g Na,low cholest Diet comment: maintain total fluid restrictions of 1200ml/24hrs Activity: No Restrictions, As Tolerated Follow Up/Referral: Follow up in the discharge clinic on sunday with Dr Hahn Medications: as per EMR Discharge Statement: "Patient was advised to return to the ER or call 911 if any headaches, dizziness, shortness of breath, chest pain, abdominal pain, bleeding, fevers, or worsening of medical condition. Patient was counseled about treatment plan, medications, possible side effects, patientverbalized understanding. All questions were answered to the best of my ability. This discharge took greater then 30 minutes in planning, reviewing documentation, counseling the patient, and discussing with other team members." ASSESSMENT ASSESSMENT Assessment Acute hypoxic respiratory failure likely due to pulmonary edema Pulmonary edema likely due to decompensated liver cirrhosis Decompensated liver cirrhosis alcohol-induced MELD Na-18 ? SBP with SIRS positive Sepsis Heart failure with preserved ejection fraction R/o PE UTI likely acute cystitis Date of Service: Nov 27, 2024 Billing Provider: KORY CUELLAR MD Common Visit Codes: 84051-AOD/OBS DISCH DAY >30min KAMILLE STATON RESIDENT Nov 27, 2024 20:43 KORY CUELLAR MD Nov 28, 2024 15:18
== END 2024-11-27 22:57 | disposition home or self-care (01) | DRG 133 ==
LOC: ER 10:22 → TELE 15:42 → ER 15:46 → TELE-WESTW 21:38
PROVIDERS: ADMIT Student in an Organized Health Care Education/Training Program; ATTEND Emergency Medicine
DX: J96.01 Acute respiratory failure with hypoxia (principal); K65.2 Spontaneous bacterial peritonitis; K70.31 Alcoholic cirrhosis of liver with ascites; R65.10 Systemic inflammatory response syndrome (SIRS) of non-infectious origin without acute organ dysfunction; I11.0 Hypertensive heart disease with heart failure; E88.09 Other disorders of plasma-protein metabolism, not elsewhere classified; E87.1 Hypo-osmolality and hyponatremia; I50.32 Chronic diastolic (congestive) heart failure; Z20.822 Contact with and (suspected) exposure to COVID-19; R63.1 Polydipsia; F10.10 Alcohol abuse, uncomplicated; E80.6 Other disorders of bilirubin metabolism; N30.00 Acute cystitis without hematuria; Z82.49 Family history of ischemic heart disease and other diseases of the circulatory system; Z83.3 Family history of diabetes mellitus
CPT/HCPCS: 36415; 36600; 71045; 76700; 80053; 81001; 82140; 82248; 82607; 82805; 82962; 83036; 83880; 85007; 85025; 85027; 85379; 85610; 85730; 87426; 87804; 93005; 93306; 93970; 97163; 99291; G0378; J1815; J2470

== ENCOUNTER 2024-11-28 13:17 | Inpatient (IN) | payer MEDICAID ==
[~2024-11-28] VITALS: Ht 170.2 cm; Wt 113.0 kg
[~2024-11-28 13:17] MED LIST: EMPA1TAB PO; FURO1TAB31 PO; INSU100I70 SC; LACT10SO3 PO; PROP1TAB53 PO; SPIR50TA5 PO
[2024-11-28 14:52] VITALS: PULSE 107; RESP 22; O2SAT 92
[2024-11-28] MEDS: ACETAMINOPHEN 325 MG TAB PO ONE (14:57)
[2024-11-28] MEDS: ALBUTEROL SULF 2.5 MG/0.5ML(0.5%) NEB SOLN NEB ONE ×2 (15:03)
--- NOTE | 2024-11-28 15:53 | ED.PDOC ---
SOB-HPI HPI Comments 54Y M with PMHx DM and liver cirrhosis presents to ED for chief complaint SOB x this morning with chills, weakness, and cough. Pt denies chest pain. Pt denies sick contact. [facility], with dx acute hypoxic respiratory failure. Pt was also told he had fluid in the abdomen but not enough for a paracentesis. No other symptoms reported. Chief Complaint: Shortness of Breath Time Seen by MD: 15:15 Primary Care Provider: UNKNOWN Reviewed notes: Nurses Notes, Medications, Allergies Information Source: Patient, Relative Mode of Arrival: Wheelchair Severity: Moderate Timing: Hours Duration: Since onset Context: At Rest PE Risk Factors: None History of: None Modifying Factors: Nothing Associated Signs and Symptoms: Cough, Other Past Medical History PAST MEDICAL HISTORY: DM, Liver Surgical History: Denies all surgeries Family History Family History: Family hx of DM, Family hx of HTN Social History Smoker: Non-Smoker Alcohol: Sober Drugs: Denies Drug Use Lives In: Home Constitutional: reports: chills, weakness; denies: diaphoresis, fatigue, fever, malaise, sweats, others EENTM: denies: blurred vision, double vision, ear bleeding, ear discharge, ear drainage, ear pain, ear ringing, eye pain, eye redness, hearing loss, mouth pain, mouth swelling, nasal discharge, nose bleeding, nose congestion, nose pain, photophobia, tearing, throat pain, throat swelling, voice changes, others Respiratory: reports: cough, shortness of breath; denies: hemoptysis, orthopnea, SOB at rest, SOB with excertion, stridor, wheezing, others Cardiovascular: denies: chest pain, dizzy spells, diaphoresis, Dyspnea on exertion, edema, irregular heart beat, left arm pain, lightheadedness, palpitations, PND, syncope, others Gastrointestinal: denies: abdomen distended, abdominal pain, blood streaked bowels, constipated, diarrhea, dysphagia, difficulty swallowing, hematemesis, melena, nausea, poor appetite, poor fluid intake, rectal bleeding, rectal pain, vomiting, others Genitourinary: denies: burning, dysuria, flank pain, frequency, hematuria, incontinence, penile discharge, penile sore, pain, testicle pain, testicle swelling, urgency, others Neurological: reports: weakness; denies: dizziness, fainting, headache, left sided numbness, left sided weakness, numbness, paresthesia, pre-existing deficit, right sided numbness, right sided weakness, seizure, speech problems, tingling, tremors, others Musculoskeletal: denies: back pain, gout, joint pain, joint swelling, muscle pain, muscle stiffness, neck pain, others Integumetry: denies: bruises, change in color, change in hair/nails, dryness, laceration, lesions, lumps, rash, wounds, others Allergic/Immunocompromised: denies: Difficulty Healing, Frequent Infections, Hives, Itching, others Hematologic/Lymphatic: denies: anemia, blood clots, easy bleeding, easy bruising, swollen glands, others Endocrine: denies: excessive hunger, excessive sweating, excessive thirst, excessive urination, flushing, intolerance to cold, intolerance to heat, unexplained weight gain, unexplained weight loss, others Psychiatric: denies: anxiety, bipolar disorder, depression, hopeless, panic disorder, schizophrenia, sleepless, suicidal, others All Other Systems: Reviewed and Negative Physical Exam General Appearance: No Apparent Distress, Normal HEENT: Normal ENT Inspection, Pharynx Normal, TMs Normal Neck: Full Range of Motion, Non-Tender, Normal, Normal Inspection Respiratory: Chest Non-Tender, No Accessory Muscle Use, No Respiratory Distress, Other (Scattered rhonchi) Cardiovascular: No Edema, No JVD, No Murmur, No Gallop, Normal Peripheral Pulses, Regular Rate/Rhythm Breast Exam: Deferred Gastrointestinal: No Organomegaly, Non Tender, No Pulsatile Mass, Normal Bowel Sounds, Soft Genitalia: Deferred Pelvic: Deferred Rectal: Deferred Extremities: No calf tenderness, Normal capillary refill, Normal inspection, Normal range of motion, Non-tender, No pedal edema Musculoskeletal : Apperance: Normal Neurologic: Alert, emergency preparedness coordinator II-XII nml as Tested, No Motor Deficits, Normal Affect, Normal Mood, No Sensory Deficits Cerebellar Function: Normal Reflexes: Normal Skin: Dry, Normal Color, Warm Lymphatic: No Adenopathy Was a procedure done? Was a procedure done?: No Differential Dx Differential Diagnosis: URI, Other (Viral illness, pneumonia, pneumothorax, CHF exacerbation) X-Ray, Labs, Meds, VS Vital Signs Date Time Temp Pulse Resp B/P (MAP) Pulse Ox O2 Delivery O2 Flow Rate FiO2 11/28/24 20:35 88/49 (62) 11/28/24 20:01 82 16 78/41 (53) 97 11/28/24 19:04 98.3 87 20 85/47 (60) 97 98.3 11/28/24 19:04 87 20 97 Room Air 11/28/24 17:36 98.7 98.7 11/28/24 17:35 98.7 11/28/24 16:44 100.0 11/28/24 16:32 100.0 99 16 104/64 (77) 95 100.0 11/28/24 16:31 100.0 11/28/24 15:04 20 96 Nasal Cannula* 2 28 11/28/24 14:57 101.0 11/28/24 14:52 107 22 92 Nasal Cannula* 2 28 11/28/24 14:46 101.0 107 22 130/73 (92) 92 101.0 11/28/24 13:30 92 Nasal Cannula* 2 28 11/28/24 13:30 Nasal Cannula* 2 28 11/28/24 13:30 98.7 115 18 141/75 (97) 92 Lab Test 11/28/24 18:26 11/28/24 00:00 Range/Units White Blood Count 8.8 # 4.4-10.8 10^3/uL Red Blood Count 3.94 L 4.5-5.90 10^6/uL Hemoglobin 13.3 #L 13.5-17.5 g/dL Hematocrit 38.1 #L 41.0-53.0 % Mean Corpuscular Volume 96.8 80.0-100.0 fL Mean Corpuscular Hemoglobin 33.7 H 28.0-32.0 pg Mean Corpuscular Hemoglobin Concent 34.8 32.0-36.0 g/dL Red Cell Distribution Width 17.8 H 11.8-14.3 % Platelet Count 86 L 140-450 10^3/uL Mean Platelet Volume 9.3 6.9-10.8 fL Neutrophils (%) (Auto) 87.3 H 37.0-80.0 % Lymphocytes (%) (Auto) 7.8 L 10.0-50.0 % Monocytes (%) (Auto) 4.7 0.0-12.0 % Eosinophils (%) (Auto) 0.0 0.0-7.0 % Basophils (%) (Auto) 0.2 0.0-2.0 % Neutrophils # (Auto) 7.7 1.6-8.6 10 ^3/uL Lymphocytes # (Auto) 0.7 0.4-5.4 10 ^3/uL Monocytes # (Auto) 0.4 0-1.3 10 ^3/uL Eosinophils # (Auto) 0 0-0.8 10 ^3/uL Basophils # (Auto) 0 0-0.2 10 ^3/uL Nucleated Red Blood Cells 0.0 % Sodium Level 128 L 136-145 mmol/L Potassium Level 4.3 3.5-5.1 mmol/L Chloride Level 97 L 98-107 mmol/L Carbon Dioxide Level 24 20-31 mmol/L Anion Gap 7 5-15 Blood Urea Nitrogen 12 9-23 mg/dL Creatinine 0.79 0.700-1.30 mg/dL Glomerular Filtration Rate Calc 106 >90 mL/min BUN/Creatinine Ratio 15.2 10.0-20.0 Serum Glucose 244 H 74-106 mg/dL Lactic Acid Level 1.8 0.4-2.0 mmol/L Calcium Level 8.6 L 8.7-10.4 mg/dL B-Type Natriuretic Peptide 108.44 0-100 pg/mL Influenza Type A Antigen Negative Negative Influenza Type B Antigen Negative Negative SARS-CoV-2 Antigen (Rapid) Negative NEGATIVE Current Medications Medications (Trade) Dose Ordered Sig/Lupe Route Start Time Stop Time Status Last Admin Acetaminophen (Tylenol Tablet) 650 mg ONCE ONCE PO 11/28/24 15:00 11/28/24 15:01 DC 11/28/24 14:57 Albuterol (Ventolin Medneb) 5 mg ONCE ONCE NEB 11/28/24 15:00 11/28/24 15:01 DC 11/28/24 15:03 Ibuprofen (Motrin Tablet) 400 mg ONCE ONCE PO 11/28/24 16:45 11/28/24 16:46 DC 11/28/24 16:44 Azithromycin 250 ml @ 125 mls/hr ONCE ONCE IV 11/28/24 18:45 11/28/24 20:44 DC 11/28/24 19:32 Ceftriaxone Sodium 50 ml @ 100 mls/hr ONCE ONCE IV 11/28/24 18:45 11/28/24 19:14 DC 11/28/24 19:02 Sodium Chloride 2,000 ml @ 2,000 mls/hr ONCE ONCE IV 11/28/24 18:45 11/28/24 19:44 DC 11/28/24 19:[address] [address] Ph: [phone] DIAGNOSTIC IMAGING Diagnostic Imaging Report : [id number] Signed PATIENT: MARYAM GARZAOACCT: [id number] UNIT: [id number] : 1970 LOC: ER ROOM / BED: / AGE / SEX: 54 / M ADM STATUS: REG ER SERVICE 39 ORDERING PHYSICIAN: MIKE MARSHALL MD PROCEDURE(s): CXR1 - CHEST XRAY 1 VIEW REASON: sob ORDER NUMBER(s): [id number], ACCESSION NUMBER(s): [id number] CHEST RADIOGRAPH Indication: sob Technique: Single frontal view of the chest was obtained COMPARISON: XY CHEST XRAY 1 VIEW on DOS: 11/27/24, XY CHEST PORTABLE on DOS: 11/23/24 FINDINGS: Lines and Tubes: None Lungs: Patchy atelectasis / infiltrate left lung base. Findings unchanged from 11/27/2024 Pleura: No effusion. No pneumothorax. Cardiomediastinal contours: Stable heart size Bones: Unremarkable IMPRESSION: 1. Stable patchy atelectasis / infiltrate left lung base ATED BY: MARYAM SKAGGS MD DICTATED DATE/TIME: 11/28/241755 SIGNED BY: MARYAM SKAGGS MD SIGNED DATE/TIME: 11/28/241755 CC: X-Ray, Labs, Meds, VS Comment Patient's presentation today is most consistent with suspected community- acquired pneumonia confirmed on his chest x-ray. Given his significant risk factors and elevated curb 65 and PSI score, plan was made to admit the patient for IV antibiotics, cultures, and fluids. Patient in agreement with the plan. Patient is in agreement with the plan and all questions answered. Considered CHF exacerbation, asthma/COPD, anaphylaxis, pulmonary embolism, DKA, pneumothorax, tamponade, but consider these to be less likely based on histo ry/physical/evaluation as above. Time of 1ST Reevaluation: 15:45 Reevaluation 1ST: Unchanged Patient Education/Counseling: Diagnosis, Treatment Family Education/Counseling: Diagnosis, Treatment Departure 1 Departure Time of Disposition: 21:54 Impression: Primary Impression: Pneumonia Additional Impressions: Sepsis Liver cirrhosis Disposition: 09 ADMITTED INPATIENT Admit to: Tele Condition: Guarded Critical Care Note Critical Care Time?: Yes (35 min-critical care time only) Stability Stability form required: No Heart Score Heart Score: Heart Score Response (Comments) Value History N/A 0 EKG N/A 0 Age N/A 0 Risk Factors N/A 0 Troponin N/A 0 Total 0 I personally scribed for MIKE MARSHALL MD ([facility]) on 11/28/24 at 15:53. E lectronically submitted by Katja Louis ([facility]). I personally scribed for MIKE MARSHALL MD ([facility]) on 11/28/24 at 15:56. Electronically submitted by Katja Louis ([facility]). I personally scribed for MIKE MARSHALL MD ([facility]) on 11/28/24 at 18:33. Electronically submitted by Katja Louis ([facility]). MIKE MARSHALL MD Nov 28, 2024 15:53
[2024-11-28] MEDS: IBUPROFEN 400 MG TAB PO ONE (16:44)
--- NOTE | 2024-11-28 17:59 | DVH ---
CHEST RADIOGRAPH Indication: sob Technique: Single frontal view of the chest was obtained COMPARISON: XY CHEST XRAY 1 VIEW on DOS: 11/27/24, XY CHEST PORTABLE on DOS: 11/23/24 FINDINGS: Lines and Tubes: None Lungs: Patchy atelectasis / infiltrate left lung base. Findings unchanged from 11/27/2024 Pleura: No effusion. No pneumothorax. Cardiomediastinal contours: Stable heart size Bones: Unremarkable IMPRESSION: 1. Stable patchy atelectasis / infiltrate left lung base
[2024-11-28] MEDS: SODIUM CHLORIDE 0.9% 1,000 ML IV ONE ×2 (18:54→22:45)
[2024-11-28] MEDS: SODIUM CHLORIDE 0.9% 2,000 ML IV ONE (19:01)
[2024-11-28] MEDS: cefTRIAXone 1GM/50ML D5W 50 ML IV ONE (19:02)
[2024-11-28 19:14] LABS: Basophils # (auto) 0 10 ^3/uL (0-0.2); Basophils % (auto) 0.2 % (0.0-2.0); Eosinophils # (auto) 0 10 ^3/uL (0-0.8); Hematocrit 38.1 % (41.0-53.0); Hemoglobin 13.3 g/dL (13.5-17.5); Lymphocytes # (auto) 0.7 10 ^3/uL (0.4-5.4); Lymphocytes % (auto) 7.8 % (10.0-50.0); Mean Corpuscular Hemoglobin 33.7 pg (28.0-32.0); Mean Corpuscular Hgb Conc. 34.8 g/dL (32.0-36.0); Mean Corpuscular Volume 96.8 fL (80.0-100.0); Monocytes # (auto) 0.4 10 ^3/uL (0-1.3); Monocytes % (auto) 4.7 % (0.0-12.0); Neutrophils # (auto) 7.7 10 ^3/uL (1.6-8.6); Neutrophils % (auto) 87.3 % (37.0-80.0); Red Blood Cells 3.94 10^6/uL (4.5-5.90); Red Cell Distribution Width 17.8 % (11.8-14.3); White Blood Cell 8.8 10^3/uL (4.4-10.8)
[2024-11-28 19:17] LABS: Platelet Count (auto) 86 10^3/uL (140-450)
[2024-11-28 19:24] LABS: Potassium 4.3 mmol/L (3.5-5.1)
[2024-11-28 19:25] LABS: Anion Gap 7 (5-15); Carbon Dioxide 24 mmol/L (20-31)
[2024-11-28 19:31] LABS: Calcium 8.6 mg/dL (8.7-10.4); Chloride 97 mmol/L (98-107); Glucose 244 mg/dL (74-106); Sodium 128 mmol/L (136-145)
[2024-11-28] MEDS: AZITHROMYCIN 500MG/ 250ML 250 ML IV ONE (19:32)
[2024-11-28 19:39] LABS: BUN/Creatinine Ratio 15.2 (10.0-20.0); Blood Urea Nitrogen 12 mg/dL (9-23)
[2024-11-28 20:06] LABS: COVID19 ANTIGEN SOFIA FIA NEGATIVE (NEGATIVE); Rapid Influenza A Negative (Negative); Rapid Influenza B Negative (Negative)
[2024-11-28 21:50] VITALS: PULSE 61; RESP 16; O2SAT 98
[2024-11-28] MEDS: MIDODRINE HCL 10 MG TAB PO ONE (23:19)
--- NOTE | 2024-11-28 23:22 | DVHHPRES ---
History of Present Illness Resident Creating Document: FRANCISCA HAWKINS RESDIENT History of Present Illness This is a 54-year-old obese male with past medical history of cirrhosis (secondary to the alcohol use disorder) diabetes mellitus, hypertension presented to the hospital because of shortness of breathe. The patient was rec ently admitted because of respiratory failure due to liver cirrhosis/ascites and discharged on 11/27/2024. Per patient, shortness of breaths has worsened since 1 day and is associated vegetation. Patient denies, fever, nausea, vomiting, chest pain, abdominal pain, or any recent changes in bowel and bladder habit. PMHx:cirrhosis (secondary to the alcohol use disorder) diabetes mellitus, hypertension, esophageal varices (patient underwent EGD 4 months back at [place] for a surveillance endoscopy and found to have esophageal varices, PSHx: Nonsignificant Family history: Nonsignificant Social history: Patient lives with brother at home, has history of alcohol use disorder (in sober since 5 years), denies smoking and any other drug use Home medication: Furosemide, spironolactone, lactulose, insulin, propranolol, Jardiance Allergic history: No known allergy Review of Systems Review of Systems General: patient denies fever, fatigue, weaknes, sweating, any recent changes in appetite and weight HEENT: No headaches, visiual changes, hearing loss, tinnitus, nasal congestion and discharge, and sore throat. Cardiovascular: Denies chest pain, palpitations, dyspnea on exertion, orthopnea, or claudication. Respiratory: Reports shortness of breath Gastrointestinal: Denies nausea, vomiting, dysphagia, odynophagia, heartburn, abdominal pain, flatulence, bloating, diarrhea, constipation, change in stool, or blood in stool. Genitourinary: No dysuria, hematuria, discharge, frequency, urgency, nocturia, incontinence, and urinary retention. Endocrine: No heat or cold intolerance, polydipsia, polyuria, and polyphagia. Neurological: No dizziness, extremity weakness and numbness, tremors, gait disturbance, seizures, and memory impairment. Psychiatric: Denies depression, anxiety,or insomnia. Musculoskeletal: Denies neck pain, stiffness and swelling, back pain, muscle weakness, joint pain, stiffness, swelling, or limited range of motion. Skin: No rashes, itching, skin lesion, changes in hair, nail, skin texture and breast. Hematologic/Lymphatic: Denies easy bruising, bleeding tendencies, or lymph node enlargement. Allergies: Coded Allergies: NO KNOWN ALLERGIES (Unverified , 11/23/24) Medications Current Medications Medications Dose Ordered Sig/Lupe Route Start Time Stop Time Status Last Admin Dose Admin Midodrine 10 mg TID@0600,1200,1800 PO 11/29/24 06:00 Exam Vital Signs Vital Signs Date Time Temp Pulse Resp B/P (MAP) Pulse Ox O2 Delivery O2 Flow Rate FiO2 11/28/24 20:35 88/49 (62) 11/28/24 20:01 82 16 97 11/28/24 19:04 98.3 98.3 11/28/24 19:04 Room Air 11/28/24 15:04 2 28 Exam General Appearance: Alert, Oriented X3, Cooperative, No acute distress HEENT: Atraumatic, PERRLA, EOMI, Mucous membrane moist/pink Respiratory: Bilaterally decreased breath sounds Cardiovascular: Regular rate, Normal S1, Normal S2, No murmurs, no chest wall tenderness Abdominal: Abdomen is distended with positive shifting dullness Extremities: Bilateral grade 2 pedal edema Skin: No rashes, No breakdown, No significant lesion Neuro: Normal gait, Normal speech, Strength at 5/5 X4 ext, Normal tone, Sensation intact, Cranial nerves 3-12 NL, Reflexes 2+ Psych/Mental Status: Mental status NL, Mood NL Labs/Xrays Labs Test 11/28/24 18:26 11/28/24 00:00 Range/Units White Blood Count 8.8 # 4.4-10.8 10^3/uL Red Blood Count 3.94 L 4.5-5.90 10^6/uL Hemoglobin 13.3 #L 13.5-17.5 g/dL Hematocrit 38.1 #L 41.0-53.0 % Mean Corpuscular Volume 96.8 80.0-100.0 fL Mean Corpuscular Hemoglobin 33.7 H 28.0-32.0 pg Mean Corpuscular Hemoglobin Concent 34.8 32.0-36.0 g/dL Red Cell Distribution Width 17.8 H 11.8-14.3 % Platelet Count 86 L 140-450 10^3/uL Mean Platelet Volume 9.3 6.9-10.8 fL Neutrophils (%) (Auto) 87.3 H 37.0-80.0 % Lymphocytes (%) (Auto) 7.8 L 10.0-50.0 % Monocytes (%) (Auto) 4.7 0.0-12.0 % Eosinophils (%) (Auto) 0.0 0.0-7.0 % Basophils (%) (Auto) 0.2 0.0-2.0 % Neutrophils # (Auto) 7.7 1.6-8.6 10 ^3/uL Lymphocytes # (Auto) 0.7 0.4-5.4 10 ^3/uL Monocytes # (Auto) 0.4 0-1.3 10 ^3/uL Eosinophils # (Auto) 0 0-0.8 10 ^3/uL Basophils # (Auto) 0 0-0.2 10 ^3/uL Nucleated Red Blood Cells 0.0 % Sodium Level 128 L 136-145 mmol/L Potassium Level 4.3 3.5-5.1 mmol/L Chloride Level 97 L 98-107 mmol/L Carbon Dioxide Level 24 20-31 mmol/L Anion Gap 7 5-15 Blood Urea Nitrogen 12 9-23 mg/dL Creatinine 0.79 0.700-1.30 mg/dL Glomerular Filtration Rate Calc 106 >90 mL/min BUN/Creatinine Ratio 15.2 10.0-20.0 Serum Glucose 244 H 74-106 mg/dL Lactic Acid Level 1.8 0.4-2.0 mmol/L Calcium Level 8.6 L 8.7-10.4 mg/dL B-Type Natriuretic Peptide 108.44 0-100 pg/mL Influenza Type A Antigen Negative Negative Influenza Type B Antigen Negative Negative SARS-CoV-2 Antigen (Rapid) Negative NEGATIVE Assessment/Plan Assessment/Plan Acute hypoxic respiratory failure, likely due to ascites/pneumonia Pneumonia, likely due to Gram-negative Gram-positive bacteria/viral Chest x-ray shows bilateral focal consolidation Influenza type a, B, COVID-19 are negative Check MRSA nares, sputum culture Empiric antibiotics ceftriaxone Breathing treatment Oxygen through nasal cannula Liver cirrhosis, likely due to alcohol use disorder Ascites, likely due to liver cirrhosis Possible spontaneous bacterial peritonitis Transaminitis Moderate protein malnutrition Coagulopathy, likely due to liver cirrhosis Thrombocytopenia, likely due to liver cirrhosis Esophageal varices, status post band ligation Patient underwent EGD for months back in [place], for surveillance endoscopy, found esophageal varices and underwent band ligation Ultrasound cirrhosis, moderate ascites seen in all 4 quadrants with largest pocket in the right lower quadrant Consult IR for thoracentesis Midodrine 10 mg t.i.d. Protonix Albumin 25 g given Due to hyper volume status, restrict fluids Hyponatremia, hypovolemic hypoosmolar, likely due to liver cirrhosis Hypokalemia DM type 2 with hyperglycemia Mild insulin sliding scale DIET: Cardiac diet GI PROPHYLAXIS:: Protonix BOWEL REGIMEN: Lactulose CODE STATUS: Goal of care discussed for more than 18 minutes, full code DISPOSITION: Telemetry Patient's status discussed with patient. Case discussed with Dr. Mendoza. Plan discussed with: Patient, Other (RN) My Orders Orders - FRANCISCA HAWKINS RESELENA Procedure Category Date Status Time Admit ADMIT 11/28/24 Transmitted 22:55 Oxygen By Nasal RT 11/28/24 Transmitted Cannula 22:55 Stat Ekg For Chest [facility] 11/28/24 In Process Pain 22:55 Notify Md Of Changes [facility] 11/28/24 In Process From Base 22:55 Manager Security For [facility] 11/28/24 In Process 24 Hours 22:55 Emergency Dysrhythmia [facility] 11/28/24 In Process Protocol 22:55 Rhythm Strips Once [facility] 11/28/24 In Process Every Shift 22:55 Date of Service: Nov 28, 2024 Billing Provider: MALIK MENDOZA MD Common Visit Codes: [id number] INP/OBS CARE (HIGH) FRANCISCA HAWKINS RESDIGREGORIO Nov 28, 2024 23:22 MALIK MENDOZA MD Nov 29, 2024 10:09
[2024-11-28] MEDS: ALBUMIN 25% 100 ML IV ONE ×2 (23:23→23:29)
[2024-11-28] MEDS ORDERED: DEXTROSE (50%) 50ML SYRG IV PRN (23:30)
[2024-11-28] MEDS ORDERED: IPRATROPIUM BROM 0.5 MG/2.5ML INH SOL NEB PRN (23:30)
[2024-11-28] MEDS ORDERED: ALBUTEROL SULF 2.5 MG/0.5ML(0.5%) NEB SOLN NEB PRN (23:30)
[2024-11-28 23:58] LABS: Total Protein 6.9 g/dL (5.7-8.2)
[2024-11-29] VITALS (8 sets, daily range): BP systolic 96–115; BP diastolic 59–72; PULSE 65–79; RESP 18–19; TEMP 97.5–98; O2SAT 91–99
[2024-11-29 00:09] LABS: Albumin 2.9 g/dL (3.2-4.8); Bilirubin, Direct 2.1 mg/dL (<0.3); Bilirubin, Total 3.5 mg/dL (0.2-1.0)
--- NOTE | 2024-11-29 00:24 | DVH ---
Limited Abdominal Ultrasound - Ascites Evaluation Technique: Limited ultrasound evaluation of the abdomen. Clinical History: ascitis Comparison: None Technique/Findings/Impression: Limited sonographic evaluation of the abdomen was performed to assess for ascites. Moderate ascites seen in all 4 quadrants with largest pocket in the right lower quadrant.
[2024-11-29] MEDS: ACCU-CHEK COMFORT CURVE STRIP VI SCH (00:27)
[2024-11-29 00:33] LABS: INR 1.71 (0.9-1.15); Prothrombin Time 17.2 sec (9.3-11.8)
[2024-11-29] MEDS: LACTULOSE 20Gm/30ML SOLN PO ONE (00:34)
[2024-11-29] MEDS: PANTOPRAZOLE 40 MG/10 ML VIAL INJ IV ONE (00:34)
[2024-11-29] MEDS: InsuLIN REG 1unit/0.01ml Soln (100units/ml) SC SCH (00:35)
[2024-11-29 05:02] LABS: Urine Bacteria None Seen /hpf (None Seen)
[2024-11-29 05:35] LABS: Basophils # (auto) 0 10 ^3/uL (0-0.2); Eosinophils # (auto) 0 10 ^3/uL (0-0.8); Eosinophils % (auto) 0.2 % (0.0-7.0); Mean Corpuscular Volume 98.6 fL (80.0-100.0); Monocytes # (auto) 0.5 10 ^3/uL (0-1.3); Nucleated Red Blood Cells % 0.2 %; White Blood Cell 4.8 10^3/uL (4.4-10.8)
[2024-11-29 05:38] LABS: Amphetamine Screen, Urine Neg (NEGATIVE); Barbiturate Scree,Urine Neg (NEGATIVE); Benzodiazephine Screen, Urine Neg (NEGATIVE); Cannabinoid Screen, Urine Neg (NEGATIVE); Cocaine Screen, Urine Neg (NEGATIVE); Opiate Scree,Urine Neg (NEGATIVE); Phencyclidine Screen, Urine Neg (NEGATIVE)
[2024-11-29 05:38] LABS: Basophils % (auto) 0.4 % (0.0-2.0); Hematocrit 34.9 % (41.0-53.0); Hemoglobin 11.8 g/dL (13.5-17.5); Lymphocytes # (auto) 1.1 10 ^3/uL (0.4-5.4); Lymphocytes % (auto) 22.8 % (10.0-50.0); Mean Corpuscular Hemoglobin 33.2 pg (28.0-32.0); Mean Corpuscular Hgb Conc. 33.7 g/dL (32.0-36.0); Monocytes % (auto) 10.6 % (0.0-12.0); Neutrophils # (auto) 3.1 10 ^3/uL (1.6-8.6); Platelet Count (auto) 63 10^3/uL (140-450); Red Blood Cells 3.54 10^6/uL (4.5-5.90); Red Cell Distribution Width 18.4 % (11.8-14.3)
[2024-11-29] MEDS: MIDODRINE HCL 10 MG TAB PO SCH (05:38)
[2024-11-29 05:54] LABS: Anion Gap 4 (5-15); BUN/Creatinine Ratio 19.2 (10.0-20.0); Blood Urea Nitrogen 10 mg/dL (9-23); Carbon Dioxide 23 mmol/L (20-31); Chloride 107 mmol/L (98-107); Potassium 3.6 mmol/L (3.5-5.1)
[2024-11-29 05:56] LABS: Urine Blood Negative /uL (Negative); Urine Clarity Clear (Clear); Urine Color Yellow (Yellow); Urine Protein, UAD Negative (Negative); Urine Specific Gravity 1.009 (1.001-1.035); Urine Sperm PRESENT /hpf (None Seen); Urine Squamous Epithelial Cell FEW /hpf (<5); Urine Urobilinogen Normal (Negative); Urine WBC <1 /hpf (0 - 3); Urine pH 5.5 (5.0-9.0)
[2024-11-29 05:57] LABS: Alanine Aminotransferase 43 U/L (7-40); Albumin 2.4 g/dL (3.2-4.8); Alkaline Phosphatase 164 U/L (46-116); Aspartate Aminotransferase 107 U/L (13-40); Bilirubin, Total 2.6 mg/dL (0.2-1.0); Glucose 178 mg/dL (74-106); Sodium 134 mmol/L (136-145); Total Protein 5.3 g/dL (5.7-8.2)
[2024-11-29] MEDS: SPIRONOLACTONE 25 MG TAB PO ONE (07:30)
[2024-11-29] MEDS: cefTRIAXone 2GM/50ML D5W 50 ML IV SCH (09:47)
[2024-11-29] MEDS: PANTOPRAZOLE 40 MG/10 ML VIAL INJ IV SCH (09:47)
[2024-11-29] MEDS: LACTULOSE 20Gm/30ML SOLN PO SCH (09:47)
[2024-11-29] MEDS: FUROSEMIDE 20 MG TAB PO SCH (10:00)
--- NOTE | 2024-11-29 14:19 | DVHPN2 ---
Subjective The patient seen and examined at bedside. Complain of abdominal pain. Reviewed: Care Plan, H&P, Labs, Medications, Previous Orders, Radiology, Other Changes from previous H/P or p: No Changes Objective Vitals Vital Signs Date Time Temp Pulse Resp B/P (MAP) Pulse Ox O2 Delivery O2 Flow Rate FiO2 11/29/24 12:10 97.6 63 18 93/60 (71) 98 97.6 11/29/24 08:00 Nasal Cannula* 2 28 Intake/Output Intake and Output 11/29/24 07:00 Intake Total 3100 ml Output Total 450 ml Balance 2650 ml Intake IV Total 3100 ml Output Urine Total 450 ml General Appearance: Alert, Oriented X3, Cooperative, No acute distress HEENT: Atraumatic, PERRLA, EOMI, Mucous membr. moist/pink Neck: Supple Lungs: Clear to auscultation, Normal air movement Cardiovascular: Regular rate, Normal S1, Normal S2, No murmurs, Gallops, Rubs Abdomen: Normal bowel sounds, Other (Ascites) Extremities: No clubbing, No cyanosis, No edema Neuro: Cranial nerves 3-12 NL Psych/Mental Status: Mental status NL Medications Current Medications Medications Dose Ordered Sig/Lupe Route Start Time Stop Time Status Last Admin Dose Admin Midodrine 10 mg TID@0600,1200,1800 PO 11/29/24 06:00 11/29/24 12:30 10 MG Pantoprazole Sodium 40 mg DAILY IV 11/29/24 10:00 11/29/24 09:47 40 MG Lactulose 30 ml BID PO 11/29/24 10:00 11/29/24 09:47 30 ML Ceftriaxone Sodium/Dextrose 50 ml @ 50 mls/hr DAILY IV 11/29/24 10:00 11/29/24 09:47 50 MLS/HR Ipratropium [place] 0.5 mg Q6HPRN PRN NEB 11/28/24 23:30 Albuterol 2.5 mg Q6HPRN PRN NEB 11/28/24 23:30 Diagnostic Test (Pha) 1 strip IQ4HR 11/29/24 00:00 11/29/24 12:00 1 STRIP Insulin Human Regular IQ4HR SC 11/29/24 00:00 11/29/24 07:57 2 UNITS Dextrose 50 ml UD PRN IV 11/28/24 23:30 Furosemide 40 mg DAILY PO 11/29/24 10:00 Spironolactone 25 mg BIDD PO 11/29/24 18:00 Laboratory Results Laboratory Tests 11/29/24 04:55 Chemistry Test 11/28/24 18:26 11/29/24 04:55 Albumin 2.9 g/dL (3.2-4.8) L 2.4 g/dL (3.2-4.8) L Calcium Level 8.6 mg/dL (8.7-10.4) L 7.0 mg/dL (8.7-10.4) L Total Protein 6.9 g/dL (5.7-8.2) 5.3 g/dL (5.7-8.2) L Coagulation Test 11/28/24 23:30 Prothrombin Time 17.2 sec (9.3-11.8) H Prothrombin Time INR 1.71 (0.9-1.15) H Cardiac Markers Test 11/28/24 18:26 B-Type Natriuretic Peptide 108.44 pg/mL (0-100) LFT Test 11/28/24 18:26 11/29/24 04:55 Alanine Aminotransferase (ALT) 61 U/L (7-40) H 43 U/L (7-40) H Alkaline Phosphatase 240 U/L (46-116) H 164 U/L (46-116) H Aspartate Amino Transferase (AST) 157 U/L (13-40) H 107 U/L (13-40) H Direct Bilirubin 2.1 mg/dL (<0.3) H Total Bilirubin 3.5 mg/dL (0.2-1.0) H 2.6 mg/dL (0.2-1.0) H Urinalysis Test 11/29/24 04:50 Urine Color Yellow (Yellow) Urine Clarity Clear (Clear) Urine pH 5.5 (5.0-9.0) Urine Specific [place] 1.009 (1.001-1.035) Urine Protein Negative (Negative) Urine Ketones Negative (Negative) Urine Blood Negative /uL (Negative) Urine Nitrite Negative (Negative) Urine Bilirubin Negative (Negative) Urine Urobilinogen Normal mg/dL (Negative) Urine Leukocyte Esterase Negative /uL (Negative) Urine RBC 1 /hpf (0 - 3) Urine WBC <1 /hpf (0 - 3) Urine Squamous Epithelial Cells Few /hpf (<5) Urine Bacteria None seen /hpf (None Seen) Urine Sperm Present /hpf (None Seen) Urine Glucose 1+ mg/dL (Normal) H Labs and/or images reviewed: Labs reviewed by me Assessment/Plan Assessment/Plan Acute hypoxic respiratory failure, likely due to ascites/pneumonia Pneumonia, likely due to Gram-negative Gram-positive bacteria/viral Chest x-ray shows bilateral focal consolidation Influenza type a, B, COVID-19 are negative Check MRSA nares, sputum culture Empiric antibiotics ceftriaxone Breathing treatment Oxygen through nasal cannula Liver cirrhosis, likely due to alcohol use disorder Ascites, likely due to liver cirrhosis Possible spontaneous bacterial peritonitis Transaminitis Moderate protein malnutrition Coagulopathy, likely due to liver cirrhosis Thrombocytopenia, likely due to liver cirrhosis Esophageal varices, status post band ligation Patient underwent EGD for months back in [place], for surveillance endoscopy, found esophageal varices and underwent band ligation Ultrasound cirrhosis, moderate ascites seen in all 4 quadrants with largest pocket in the right lower quadrant Consult IR for thoracentesis Midodrine 10 mg t.i.d. Protonix Albumin 25 g given Due to hyper volume status, restrict fluids Hyponatremia, hypovolemic hypoosmolar, likely due to liver cirrhosis Hypokalemia DM type 2 with hyperglycemia Mild insulin sliding scale DIET: Cardiac diet GI PROPHYLAXIS:: Protonix BOWEL REGIMEN: Lactulose CODE STATUS: Goal of care discussed for more than 18 minutes, full code DISPOSITION: Telemetry Continuing current management. Discussed with patient and regarding to plan of care. Waiting for IR for paracentesis. This medical document was created using an electronic medical record system with [employer] direct computerized dictation system. Although this document has been carefully reviewed, there may still be some phonetic and typographical errors. These areas are purely typographical due to imperfections of the software programs, and do not reflect any compromise in the patient's medical care. Plan discussed with: Patient, Spouse Date of Service: Nov 29, 2024 Billing Provider: ARA DISAL MD Common Visit Codes: [id number] INP/OBS CARE(HIGH) ARA DISLA MD Nov 29, 2024 14:19
[2024-11-29] MEDS: SPIRONOLACTONE 25 MG TAB PO SCH (17:14)
[2024-11-30] VITALS (11 sets, daily range): BP systolic 95–167; BP diastolic 50–74; PULSE 65–112; RESP 16–19; TEMP 97.5–99; O2SAT 95–98
[2024-11-30] MEDS ORDERED: DEXTROSE (50%) 50ML SYRG IV PRN (08:00)
[2024-11-30] MEDS: ACCU-CHEK COMFORT CURVE STRIP VI SCH (11:22)
[2024-11-30] MEDS: InsuLIN REG 1unit/0.01ml Soln (100units/ml) SC SCH (11:22)
--- NOTE | 2024-11-30 13:36 | DVHPN2 ---
Subjective The patient seen and examined at bedside. Complain of abdominal pain. Reviewed: Care Plan, H&P, Labs, Medications, Previous Orders, Radiology, Other Changes from previous H/P or p: No Changes Objective Vitals Vital Signs Date Time Temp Pulse Resp B/P (MAP) Pulse Ox O2 Delivery O2 Flow Rate FiO2 11/30/24 13:00 98.1 88 18 99/63 (75) 96 98.1 11/30/24 10:10 Nasal Cannula 2.0 11/30/24 10:10 28 Intake/Output Intake and Output 11/30/24 06:59 Intake Total 850 ml Balance 850 ml Intake Oral 800 ml IV Total 50 ml # Voids 3 General Appearance: Alert, Oriented X3, Cooperative, No acute distress HEENT: Atraumatic, PERRLA, EOMI, Mucous membr. moist/pink Neck: Supple Lungs: Clear to auscultation, Normal air movement Cardiovascular: Regular rate, Normal S1, Normal S2, No murmurs, Gallops, Rubs Abdomen: Normal bowel sounds, Other (Ascites) Extremities: No clubbing, No cyanosis, No edema Neuro: Cranial nerves 3-12 NL Psych/Mental Status: Mental status NL Medications Current Medications Medications Dose Ordered Sig/Lupe Route Start Time Stop Time Status Last Admin Dose Admin Midodrine 10 mg TID@0600,1200,1800 PO 11/29/24 06:00 11/30/24 11:21 10 MG Pantoprazole Sodium 40 mg DAILY IV 11/29/24 10:00 11/30/24 08:59 40 MG Lactulose 30 ml BID PO 11/29/24 10:00 11/30/24 08:58 30 ML Ceftriaxone Sodium/Dextrose 50 ml @ 50 mls/hr DAILY IV 11/29/24 10:00 11/30/24 08:59 50 MLS/HR Ipratropium [place] 0.5 mg Q6HPRN PRN NEB 11/28/24 23:30 Albuterol 2.5 mg Q6HPRN PRN NEB 11/28/24 23:30 Furosemide 40 mg DAILY PO 11/29/24 10:00 Spironolactone 25 mg BIDD PO 11/29/24 18:00 11/30/24 06:07 25 MG Diagnostic Test (Pha) 1 strip ACHS 11/30/24 11:30 11/30/24 11:22 1 STRIP Insulin Human Regular ACHS SC 11/30/24 11:30 11/30/24 11:22 4 UNITS Dextrose 50 ml UD PRN IV 11/30/24 08:00 Laboratory Results Laboratory Tests 11/29/24 04:55 Urinalysis Test 11/29/24 04:50 Urine Color Yellow (Yellow) Urine Clarity Clear (Clear) Urine pH 5.5 (5.0-9.0) Urine Specific [place] 1.009 (1.001-1.035) Urine Protein Negative (Negative) Urine Ketones Negative (Negative) Urine Blood Negative /uL (Negative) Urine Nitrite Negative (Negative) Urine Bilirubin Negative (Negative) Urine Urobilinogen Normal mg/dL (Negative) Urine Leukocyte Esterase Negative /uL (Negative) Urine RBC 1 /hpf (0 - 3) Urine WBC <1 /hpf (0 - 3) Urine Squamous Epithelial Cells Few /hpf (<5) Urine Bacteria None seen /hpf (None Seen) Urine Sperm Present /hpf (None Seen) Urine Glucose 1+ mg/dL (Normal) H Microbiology Microbiology Date/Time Source Procedure Growth Status 11/29/24 04:50 Voided Urine Urine Culture - Preliminary Resulted 11/28/24 18:57 Blood Blood Culture - Preliminary NO GROWTH AFTER 24 HOURS OF INCUBATION. Resulted Labs and/or images reviewed: Labs reviewed by me Assessment/Plan Assessment/Plan Acute hypoxic respiratory failure, likely due to ascites/pneumonia Pneumonia, likely due to Gram-negative Gram-positive bacteria/viral Chest x-ray shows bilateral focal consolidation Influenza type a, B, COVID-19 are negative Check MRSA nares, sputum culture Empiric antibiotics ceftriaxone Breathing treatment Oxygen through nasal cannula Liver cirrhosis, likely due to alcohol use disorder Ascites, likely due to liver cirrhosis Possible spontaneous bacterial peritonitis Transaminitis Moderate protein malnutrition Coagulopathy, likely due to liver cirrhosis Thrombocytopenia, likely due to liver cirrhosis Esophageal varices, status post band ligation Patient underwent EGD for months back in [place], for surveillance endoscopy, found esophageal varices and underwent band ligation Ultrasound cirrhosis, moderate ascites seen in all 4 quadrants with largest pocket in the right lower quadrant Consult IR for paracentesis Change diet to cardiac low carb controlled diet Midodrine 10 mg t.i.d. Protonix Albumin 25 g given Due to hyper volume status, restrict fluids Hyponatremia, hypovolemic hypoosmolar, likely due to liver cirrhosis Hypokalemia DM type 2 with hyperglycemia Mild insulin sliding scale DIET: Cardiac diet GI PROPHYLAXIS:: Protonix BOWEL REGIMEN: Lactulose CODE STATUS: Goal of care discussed for more than 18 minutes, full code DISPOSITION: Telemetry Continuing current management. Discussed with patient and regarding to plan of care. Waiting for IR for paracentesis. Replace electrolytes as needed. This medical document was created using an electronic medical record system with [employer] direct computerized dictation system. Although this document has been carefully reviewed, there may still be some phonetic and typographical errors. These areas are purely typographical due to imperfections of the software programs, and do not reflect any compromise in the patient's medical care. Plan discussed with: Patient My Orders Orders - ARA DISLA MD Procedure Category Date Status Time Cardiac DIET 11/29/24 Transmitted Diet-2gna,Lofat,Lochol Dinner Glucose Blood PHA 11/30/24 In Process (Accu-Chek Comfort 11:30 Insulin R (Human) PHA 11/30/24 In Process (Insulin R) 11:30 Dextrose 50% Syringe PHA 11/30/24 In Process 08:00 Date of Service: Nov 30, 2024 Billing Provider: ARA DISLA MD Common Visit Codes: [id number] INP/OBS CARE(HIGH) ARA DISLA MD Nov 30, 2024 13:36
[2024-12-01] VITALS (7 sets, daily range): BP systolic 96–108; BP diastolic 56–61; PULSE 34–87; RESP 18–19; TEMP 97.7–98.4; O2SAT 95–97
[2024-12-01 08:10] LABS: Anion Gap 6 (5-15); Carbon Dioxide 24 mmol/L (20-31); Chloride 102 mmol/L (98-107); Potassium 4.2 mmol/L (3.5-5.1)
[2024-12-01 08:12] LABS: Sodium 132 mmol/L (136-145)
[2024-12-01 08:13] LABS: Calcium 8.1 mg/dL (8.7-10.4)
[2024-12-01 08:15] LABS: Basophils # (auto) 0.1 10 ^3/uL (0-0.2); Basophils % (auto) 1.4 % (0.0-2.0); Eosinophils # (auto) 0 10 ^3/uL (0-0.8); Eosinophils % (auto) 0.4 % (0.0-7.0); Hematocrit 35.6 % (41.0-53.0); Hemoglobin 12.1 g/dL (13.5-17.5); Lymphocytes # (auto) 1.1 10 ^3/uL (0.4-5.4); Lymphocytes % (auto) 21.3 % (10.0-50.0); Mean Corpuscular Hemoglobin 33.5 pg (28.0-32.0); Mean Corpuscular Hgb Conc. 34.1 g/dL (32.0-36.0); Mean Corpuscular Volume 98.1 fL (80.0-100.0); Monocytes # (auto) 0.5 10 ^3/uL (0-1.3); Neutrophils # (auto) 3.6 10 ^3/uL (1.6-8.6); Neutrophils % (auto) 67.9 % (37.0-80.0); Nucleated Red Blood Cells % 0.1 %; Platelet Count (auto) 81 10^3/uL (140-450); Red Blood Cells 3.62 10^6/uL (4.5-5.90); Red Cell Distribution Width 18.1 % (11.8-14.3); White Blood Cell 5.3 10^3/uL (4.4-10.8)
[2024-12-01 08:16] LABS: BUN/Creatinine Ratio 14.3 (10.0-20.0)
[2024-12-01 08:17] LABS: Blood Urea Nitrogen 8 mg/dL (9-23); Glucose 160 mg/dL (74-106)
[2024-12-01 10:07] LABS: Hepatitis A Ab IgM Negative; Hepatitis B Core IgM Negative (Negative); Hepatitis B Surface Antigen Negative (Negative); Hepatitis C Antibody Negative (Negative)
--- NOTE | 2024-12-01 10:38 | DVH ---
US PARACENTESIS, HISTORY: ASCITES PROCEDURE: Informed consent was obtained. The patient was placed in supine position. A limited locali zation ultrasound of the abdomen was obtained, and the skin site over the largest pocket of fluid was marked and entry site was prepped with chlorhexidine which was allowed to dry and draped in the usua l sterile fashion. Time out was performed. Following administration of 1% lidocaine local anesthetic, a 5 [place] centesis needle catheter was percutaneously inserted into the peritoneal collection until fluid was aspirated. The catheter was advanced into the fluid collection and the needle removed. Abo ut 4950 cc of fluid was aspirated and specimen sent for appropriate cultures/cytology/cultures and cy tology. The catheter was then removed and a sterile dressing applied. No immediate complication was identified. FINDINGS: Limited ultrasound imaging demonstrates mild to moderate ascites. Aspirated fluid was clear and serous. IMPRESSION: US-guided paracentesis with 5L removed.
[2024-12-01 12:47] LABS: Body Fluid Red Blood Cells 411 CUMM (0-2000); Body Fluid White Blood Cells 1057 CUMM (0-200)
[2024-12-01 12:48] LABS: Body Fluid Polymorphonuclear 50 % (0-25)
--- NOTE | 2024-12-01 13:49 | DVHDS2 ---
Discharge Summary Date of Admission Nov 28, 2024 at 22:55 Date of Discharge: Dec 01, 2024 Admitting Diagnosis Community-acquired pneumonia, Gram-positive/Gram-negative etiology Labs/Diagnostic Data: Laboratory Results Test 12/01/24 11:35 12/01/24 10:36 12/01/24 04:50 11/29/24 04:55 POC Glucose 189 mg/dl (70-106) Body Fluid Source Peritoneal fluid Body Fluid pH 8.0 Body Fluid WBC (Manual) 1057 CUMM (0-200) Body Fluid RBC (Manual) 411 CUMM (0-2000) Body Fluid Mononuclear Cells 50 % Body Fluid Polymorphonuclear Cells 50 % (0-25) White Blood Count 5.3 10^3/uL (4.4-10.8) Red Blood Count 3.62 10^6/uL (4.5-5.90) Hemoglobin 12.1 g/dL (13.5-17.5) Hematocrit 35.6 % (41.0-53.0) Mean Corpuscular Volume 98.1 fL (80.0-100.0) Mean Corpuscular Hemoglobin 33.5 pg (28.0-32.0) Mean Corpuscular Hemoglobin Concent 34.1 g/dL (32.0-36.0) Red Cell Distribution Width 18.1 % (11.8-14.3) Platelet Count 81 10^3/uL (140-450) Mean Platelet Volume 10.0 fL (6.9-10.8) Neutrophils (%) (Auto) 67.9 % (37.0-80.0) Lymphocytes (%) (Auto) 21.3 % (10.0-50.0) Monocytes (%) (Auto) 9.0 % (0.0-12.0) Eosinophils (%) (Auto) 0.4 % (0.0-7.0) Basophils (%) (Auto) 1.4 % (0.0-2.0) Neutrophils # (Auto) 3.6 10 ^3/uL (1.6-8.6) Lymphocytes # (Auto) 1.1 10 ^3/uL (0.4-5.4) Monocytes # (Auto) 0.5 10 ^3/uL (0-1.3) Eosinophils # (Auto) 0 10 ^3/uL (0-0.8) Basophils # (Auto) 0.1 10 ^3/uL (0-0.2) Nucleated Red Blood Cells 0.1 % Sodium Level 132 mmol/L (136-145) Potassium Level 4.2 mmol/L (3.5-5.1) Chloride Level 102 mmol/L (98-107) Carbon Dioxide Level 24 mmol/L (20-31) Anion Gap 6 (5-15) Blood Urea Nitrogen 8 mg/dL (9-23) Creatinine 0.56 mg/dL (0.700-1.30) Glomerular Filtration Rate Calc 118 mL/min (>90) BUN/Creatinine Ratio 14.3 (10.0-20.0) Serum Glucose 160 mg/dL (74-106) Calcium Level 8.1 mg/dL (8.7-10.4) Total Bilirubin 2.6 mg/dL (0.2-1.0) Aspartate Amino Transferase (AST) 107 U/L (13-40) Alanine Aminotransferase (ALT) 43 U/L (7-40) Alkaline Phosphatase 164 U/L (46-116) Total Protein 5.3 g/dL (5.7-8.2) Albumin 2.4 g/dL (3.2-4.8) Test 11/29/24 04:50 11/28/24 23:30 11/28/24 18:26 11/28/24 00:00 Urine Color Yellow (Yellow) Urine Clarity Clear (Clear) Urine pH 5.5 (5.0-9.0) Urine Specific [place] 1.009 (1.001-1.035) Urine Protein Negative (Negative) Urine Ketones Negative (Negative) Urine Blood Negative /uL (Negative) Urine Nitrite Negative (Negative) Urine Bilirubin Negative (Negative) Urine Urobilinogen Normal mg/dL (Negative) Urine Leukocyte Esterase Negative /uL (Negative) Urine RBC 1 /hpf (0 - 3) Urine WBC <1 /hpf (0 - 3) Urine Squamous Epithelial Cells Few /hpf (<5) Urine Bacteria None seen /hpf (None Seen) Urine Sperm Present /hpf (None Seen) Urine Glucose 1+ mg/dL (Normal) Urine Opiates Screen Neg (NEGATIVE) Urine Fentanyl Screen Neg (NEGATIVE) Urine Barbiturates Screen Neg (NEGATIVE) Urine Phencyclidine Screen Neg (NEGATIVE) Urine Amphetamines Screen Neg (NEGATIVE) Urine Benzodiazepines Screen Neg (NEGATIVE) Urine Cocaine Screen Neg (NEGATIVE) Urine Cannabinoids Screen Neg (NEGATIVE) Prothrombin Time 17.2 sec (9.3-11.8) Prothrombin Time INR 1.71 (0.9-1.15) Ammonia 65 umol/L (11-32) Hepatitis A IgM Antibody Negative Hepatitis B Surface Antigen Negative (Negative) Hepatitis B Core IgM Antibody Negative (Negative) Hepatitis C Antibody Negative (Negative) Lactic Acid Level 1.8 mmol/L (0.4-2.0) Direct Bilirubin 2.1 mg/dL (<0.3) B-Type Natriuretic Peptide 108.44 pg/mL (0-100) Influenza Type A Antigen Negative (Negative) Influenza Type B Antigen Negative (Negative) SARS-CoV-2 Antigen (Rapid) Negative (NEGATIVE) Other Laboratory Tests 12/01/24 04:50 Brief Hx & Hospital Course: History of Present Illness This is a 54-year-old obese male with past medical history of cirrhosis (secondary to the alcohol use disorder) diabetes mellitus, hypertension presented to the hospital because of shortness of breathe. The patient was recently admitted because of respiratory failure due to liver cirrhosis/ascites and discharged on 11/27/2024. Per patient, shortness of breaths has worsened since 1 day and is associated vegetation. Patient denies, fever, nausea, vomiting, chest pain, abdominal pain, or any recent changes in bowel and bladder habit. Course of hospitalization: Patient was started on IV antibiotic therapy. Patient has been weaned off of oxygen. Patient underwent paracentesis with 5 L removed. Patient states that follow up his symptoms have improved. He was agreeable to be discharged home and continue all medications that he was discharged with on 11/27/2024. Physical examination General: Alert and Oriented x3. No acute distress. Well-nourished. Eyes: EOMI. Anicteric. HENT: Moist mucous membranes. Lungs: Clear to auscultation bilaterally. No accessory muscle use. Cardiovascular: Regular rate and rhythm. No murmur. No JVD. Abdomen: Soft, non-tender and non-distended. No palpable masses. Extremities: No edema. Non-tender. Skin: No rashes or lesions. Warm. Neurologic: No focal neurological deficits. CN II-XII grossly intact, but not individually tested. Psychiatric: Cooperative. Appropriate mood and affect. This medical document was created using an electronic medical record system with [employer] dictation system. Although this document has been carefully reviewed, there may still be some phonetic and typographical errors. These areas are purely typographical due to imperfections of the software programs, and do not reflect any compromise in the patient's medical care. Total time spent with patient discussing and formulating plan of care: 35 minutes. Consults/Reason for consult Interventional Radiology: Paracentesis Operations or Procedures 12/01/2024: Paracentesis Condition at Discharge: Guarded Final Diagnosis/Problems List Ascites Secondary Diagnosis: Cirrhosis of the liver Questionable community-acquired pneumonia, Gram-positive/Gram-negative etiology Obesity Acute hypoxic respiratory failure Thrombocytopenia Hypoalbuminemia Discharge Disposition: Home with Health Services Discharge Instruct/Medications Diet: Cardiac 2g Na,low cholest, See Comment Diet comment: Fluid restriction of 1200 mL per day Activity: No Restrictions, As Tolerated Follow Up/Referral: Discharge Clinic in one week Medications: Continue all previous home medications as previously ordered 36 Discharge Statement: "Patient was advised to return to the ER or call 911 if any headaches, dizziness, shortness of breath, chest pain, abdominal pain, bleeding, fevers, or worsening of medical condition. Patient was counseled about treatment plan, medications, possible side effects, patientverbalized understanding. All questions were answered to the best of my ability. This discharge took greater then 30 minutes in planning, reviewing documentation, counseling the patient, and discussing with other team members." ASSESSMENT ASSESSMENT Assessment Ascites Date of Service: Dec 01, 2024 Billing Provider: COLLINS EDWARDS NP Common Visit Codes: 28060-GFK/OBS DISCH DAY >30min COLLINS EDWARDS NP Dec 01, 2024 13:49
[2024-12-02 12:06] LABS: Protein, Body Fluid 1.6 g/dL (.)
== END 2024-12-01 16:00 | disposition home or self-care (01) | DRG 133 ==
LOC: ER 13:17 → TELE 22:55 → TELE-EAST 11-29 16:39
PROVIDERS: ADMIT Internal Medicine; ATTEND Nurse Practitioner Acute Care
PROC: 0W9G3ZZ Drainage of Peritoneal Cavity, Percutaneous Approach (ICD-10-PCS; principal; 2024-12-01)
DX: J96.01 Acute respiratory failure with hypoxia (principal); J15.69 Pneumonia due to other Gram-negative bacteria; D68.9 Coagulation defect, unspecified; D69.6 Thrombocytopenia, unspecified; E87.1 Hypo-osmolality and hyponatremia; J15.9 Unspecified bacterial pneumonia; E88.09 Other disorders of plasma-protein metabolism, not elsewhere classified; K70.31 Alcoholic cirrhosis of liver with ascites; Z20.822 Contact with and (suspected) exposure to COVID-19; R74.01 Elevation of levels of liver transaminase levels; E87.6 Hypokalemia; E11.65 Type 2 diabetes mellitus with hyperglycemia; I10 Essential (primary) hypertension; E66.9 Obesity, unspecified; E86.1 Hypovolemia; Z68.39 Body mass index [BMI] 39.0-39.9, adult; Z83.3 Family history of diabetes mellitus; Z82.49 Family history of ischemic heart disease and other diseases of the circulatory system
CPT/HCPCS: 36415; 49083; 71045; 76705; 76942; 80048; 80053; 80074; 80076; 80307; 81001; 82140; 82962; 83605; 83880; 83986; 85025; 85610; 87040; 87081; 87086; 87205; 87426; 87804; 89051; 94640; 99291; G0378; J1815; J2470; P9047